=== PATIENT | female | born 1930 | race Two or more races ===

== ENCOUNTER 2020-02-24 12:16 | Inpatient (IN) | payer MEDICAID, SELFPAY ==
[~2020-02-24] VITALS: Ht 152.4 cm; Wt 57.2 kg
[2020-02-24 12:42] LABS: BASOPHILS % (AUTO) 0.4 % (0.0-2.0); HEMATOCRIT 44 % (33-45); HEMOGLOBIN 14.4 g/dL (11.5-14.8); LYMPHOCYTES # (AUTO) 0.9 /CMM (0.8-4.8); LYMPHOCYTES % (AUTO) 7.4 % (20.0-44.0); MEAN CORPUSCULAR HGB CONC 33 g/dl (31.0-36.0); MEAN CORPUSCULAR VOLUME 92 fL (82-100); MONOCYTES # (AUTO) 0.5 /CMM (0.1-1.30); MONOCYTES % (AUTO) 4.3 % (2.0-12.0); NEUTROPHILS # (AUTO) 10.8 /CMM (1.8-8.9); NEUTROPHILS % (AUTO) 87.9 % (43.0-81.0); PLATELET COUNT (AUTO) 253 /CMM (150-450); WHITE BLOOD COUNT (AUTO) 12.2 K/uL (4.3-11.0)
--- NOTE | 2020-02-24 12:45 | NUR ---
AJITH FROM HOME TO ER BED 6. AAOX4. NOT IN RESP DISTRESS. BROUGHT IN FOR FEELING SICK FOR THE PAST FEW DAYS. PT REPORTS TYHAT SHE IS LIVING WITH HER FAMILY WHO ARE COVID POSITIVE. PT STATES THAT SHE HAS JUST BEEN IN BED AND CANT EAT. TEMP 99.9. PT ON ISOLATION AND MASKED PLACED. WAS AT BEDSIDE FOR EVAL. ORDERS RECEIVED NOTED AND CARRIED OUT. IV LINE ONTAINED, BLOOD DRAWN AND GIVE TO SHIP SURVEYOR. PT IN MONITOR.
--- NOTE | 2020-02-24 12:49 | NUR ---
COVID SWAB DONE AND SENT TO LAB
[2020-02-24 12:50] LABS: CALCIUM, SERUM 9.2 mg/dL (8.5-10.1); CARBON DIOXIDE 27 mmol/L (21-32); CHLORIDE 106 mmol/L (98-107); GLUCOSE 145 mg/dL (74-106); POTASSIUM 3.3 mmol/L (3.5-5.1); SODIUM SERUM 144 mmol/L (136-145); UREA NITROGEN, BLOOD 16 mg/dL (7-18)
--- NOTE | 2020-02-24 12:51 | NUR ---
PT UNABLE TO URINATE AT THIS TIME. MADE AWARE. WILL COLLECT URINE WHEN PT IS READY.
[2020-02-24 13:03] LABS: ALANINE AMINOTRANSFERASE 36 U/L (12-78); ALBUMIN 2.9 g/dL (3.4-5.0); ALKALINE PHOSPHATASE 81 U/L (46-116); ASPARTATE AMINOTRANSFERASE 43 U/L (15-37); B-TYPE NATRIURETIC PEPTIDE 245 PG/ML (0-125); BILIRUBIN,TOTAL 0.9 mg/dL (0.2-1.0); TOTAL PROTEIN, SERUM 7.9 g/dL (6.4-8.2)
--- NOTE | 2020-02-24 13:14 | NUR ---
CALLED FOR TELE ISOLATION BED
[2020-02-24 14:18] LABS: C-REACTIVE PROTEIN 6.3 mg/dL (0.0-0.9); CREATINE KINASE, TOTAL 41 U/L (26-192); FERRITIN 192 ng/mL (8-388)
[2020-02-24 14:19] LABS: D-DIMER 2.42 mg/L(FEU (0.17-0.50)
[2020-02-24] MEDS ORDERED: Z GUARD REMEDY 2 OZ OINT TP PRN (15:00)
[2020-02-24] MEDS ORDERED: MAG HYDROX/AL HYDROX/SIMETH 30 ML UDC PO PRN (15:00)
[2020-02-24] MEDS ORDERED: ONDANSETRON HCL/PF 4 MG/2 ML VIAL IVP PRN (15:00)
[2020-02-24] MEDS ORDERED: MAGNESIUM HYDROXIDE 30 ML UDC PO PRN (15:00)
[2020-02-24 15:10] LABS: BILIRUBIN,DIRECT 0.2 mg/dL (0.0-0.2)
--- NOTE | 2020-02-24 15:12 | NUR ---
NURSING SUP GAVE 117-2.
[2020-02-24 15:25] LABS: ABG BASE EXCESS 2.1 mmol/L; ABG OXYGEN SATURATION 93.2 % (92.0-98.5); ABG PCO2 35.5 mmHg (35.0-45.0); ABG PH 7.472 (7.350-7.450); ABG PO2 64.4 mmHg (75.0-100.0); AaDO2 64.5 mmHg; COHb 0.4 % (0.5-1.5); MetHb 0.5 % (0.0-1.5); O2Hb 92.4 % (94.0-97.0); SITE, ABG Right Radial; VENT MODE, BG NC 2L
--- NOTE | 2020-02-24 15:52 | NUR ---
DR. HARRIS AT BEDSIDE
--- NOTE | 2020-02-24 15:54 | NUR ---
REPORT GIVEN TO KYRIE HORVATH FOR PHILOMENA.
[2020-02-24 16:00] VITALS: BP 121/71
[2020-02-24] MEDS ORDERED: AZITHROMYCIN 500 MG in IV D5W 250 ML IV SCH (16:00)
--- NOTE | 2020-02-24 16:10 | NUR ---
PT TRASNPORTED TO UNIT ON [facility] WITH EMT AND RN AT BEDSIDE USING ACLS PROTOCOL. NAD NOTED.
--- NOTE | 2020-02-24 16:30 | NUR ---
SPORTS BROADCASTING INTERNSHIP NOTES PATIENT RECEIVED ALERT AND ORIENTED X3, NO RESPIRATORY DISTRESS, ON O2 AT 2LPM VIA NASAL CANULA. NO C/O PAIN AT THIS TIME. ASSEMBLIES AND INSTALLATIONS INSPECTOR ON SR AT 90S. SKIN WARM TO TOUCH, IV ACCESS SITE ON THE RT WRIST #20G, INTACT AND PATENT. SAFETY PRECAUTIONS IN PLACE. BELONGINGS ACCOUNTED FOR AND SIGNED. PATIENT'S NEEDS ATTENDED, BED ON LOWEST LOCKED POSITION, CALL LIGHT WITHIN REACH. WILL CONTINUE TO MONITOR.
[2020-02-24] MEDS ORDERED: CEFTRIAXONE 1 G VIAL IV SCH (17:00)
[2020-02-24] MEDS: CEFTRIAXONE 1 G in IV D5W 50 ML IV SCH (17:28)
[2020-02-24] MEDS: ENOXAPARIN SODIUM 30 MG/0.3 ML DISP.SYRIN SQ SCH (17:28)
[2020-02-24 20:00] VITALS: BP 116/53
[2020-02-24] MEDS: HYDROXYCHLOROQUINE 200 MG TABLET PO SCH (23:04)
[2020-02-25] VITALS: BP 117/49
[2020-02-25 04:00] VITALS: BP 116/50
[2020-02-25 06:48] LABS: BASOPHILS % (AUTO) 0.2 % (0.0-2.0); HEMATOCRIT 39 % (33-45); HEMOGLOBIN 13.1 g/dL (11.5-14.8); LYMPHOCYTES % (AUTO) 7.9 % (20.0-44.0); MEAN CORPUSCULAR HGB CONC 33 g/dl (31.0-36.0); MEAN CORPUSCULAR VOLUME 91 fL (82-100); MONOCYTES # (AUTO) 0.3 /CMM (0.1-1.30); MONOCYTES % (AUTO) 2.6 % (2.0-12.0); NEUTROPHILS # (AUTO) 11.6 /CMM (1.8-8.9); NEUTROPHILS % (AUTO) 89.3 % (43.0-81.0); PLATELET COUNT (AUTO) 240 /CMM (150-450); RED BLOOD CELL COUNT(AUTO) 4.31 MIL/uL (4.0-5.2)
[2020-02-25 07:06] LABS: CALCIUM, SERUM 8.5 mg/dL (8.5-10.1); CREATININE 0.7 mg/dL (0.6-1.3); MAGNESIUM 2.3 mg/dL (1.8-2.4); PHOSPHORUS 2.4 mg/dL (2.5-4.9); POTASSIUM 3.2 mmol/L (3.5-5.1)
[2020-02-25 07:17] LABS: C-REACTIVE PROTEIN 9.5 mg/dL (0.0-0.9)
--- NOTE | 2020-02-25 07:20 | NUR ---
ms rn received on bed, awake,alert,oriented x3,portuguese speaking,not in any form of distress, respirations even and unlabored, o2 2liters at 92 % saturation,all needs attended.
[2020-02-25 08:00] VITALS: BP 126/78
--- NOTE | 2020-02-25 08:22 | NUR ---
WOUND CARE CONSULT: REVIEWED CHART AND NURSING DOCUMENTATION. CURRENT CHAR SCORE IS 16. RECOMMENDATIONS MADE FOR SKIN PROTECTION AND DISCUSSED WITH NURSING STAFF. MD IN AGREEMENT WITH PLAN OF CARE.
[2020-02-25] MEDS: HYDROXYCHLOROQUINE 200 MG TABLET PO SCH ×2 (08:47→22:10)
--- NOTE | 2020-02-25 09:00 | NUR ---
ms stoll breakfast served, due meds given,tolerated well.
--- NOTE | 2020-02-25 10:05 | NUR ---
ms rn, patient trans fered to 205 per order. no distress noted. report given to sandra.
--- NOTE | 2020-02-25 10:10 | NUR ---
MAIL PROCESSING CLERK NOTES PATIENT TRANSFER FROM [facility], REPORT GIVEN BY SHANTHI MITTAL. PATIENT ALERT ORIENTED X 2. NO ACUTE DISTRESS NOTED. BREATHING UNLABORED. NO SOB NOTED. IV ACCESS PATENT AND INTACT, NO REDNESS, NO SWELLING NOTED ISOLATION AND SAFETY MEASURES IN PLACE. CALL LIGHT WITHIN REACH. WILL CONTINUE TO MONITOR ACCORDINGLY.
[2020-02-25 12:00] VITALS: BP 128/76
[2020-02-25] MEDS ORDERED: K PHOS NEUTRAL 250 MG TABLET PO ONE (13:30)
[2020-02-25] MEDS: IV D5/0.45 NACL 1,000 ML IV PRN (15:40)
[2020-02-25] MEDS: POTASSIUM CHLORIDE 20 MEQ TAB.PRT.SR PO SCH ×2 (15:57→17:06)
[2020-02-25 16:00] VITALS: BP 135/63
[2020-02-25] MEDS: CEFTRIAXONE 1 G in IV D5W 50 ML IV SCH (17:06)
--- NOTE | 2020-02-25 18:00 | NUR ---
MS RN NOTES COVID TEST RESULTED POSITIVE, PUBLICATIONS DESIGNER SOCO SANTAMARIA MADE AWARE, NO NEW ORDERS MADE AT THIS TIME. PATIENT ON ISOLATION FOR COVID. GRANDDAUGHTER MARYBETH MILLER (PERSON TO NOTIFY) MADE AWARE.
--- NOTE | 2020-02-25 18:58 | NUR ---
PIECE MEAT TRIMMER NOTES PATIENT IN BED ALERT ORIENTED X 2. NO ACUTE DISTRESS NOTED. BREATHING UNLABORED. NO SOB NOTED. IV ACCESS PATENT AND INTACT, NO REDNESS, NO SWELLING NOTED.NEEDS ATTENDED AND ANTICIPATED. ISOLATION AND SAFETY MEASURES IN PLACE. CALL LIGHT WITHIN REACH. WILL ENDORSE TO NIGHT NURSE FOR CONTINUITY OF CARE.
--- NOTE | 2020-02-25 19:45 | NUR ---
RN OPENING NOTES RECEIVED REPORT FROM [facility] KYRIE SOLAN[facility]. FOUND Pt RESTING IN BED COMFORTABLY. NO S/S OF ACUTE DISTRESS OR SOB NOTED. PER REPORT Pt IS A/OX2-3, FORGETFUL, WITH DEMENTIA, LUXEMBOURGISH SPEAKING ONLY. ON TELE MONITOR WITH TELE READING SR 90s. IV ACCESS ON RWRIST #20G. SAFETY MEASURES IN PLACE. BED LOW, LOCKED, HOB ELEVATED, SIDE RAILS UP, CALL LIGHT AND BEDSIDE TABLE WITHIN REACH. BED ALARM ON. WILL CONTINUE TO MONITOR Pt's CONDITION AND SAFETY THROUGHOUT THE NIGHT.
[2020-02-25 20:30] VITALS: BP 126/59
--- NOTE | 2020-02-25 22:00 | NUR ---
RN NOTES: PT PULLED OUT IV ACCESS AGAIN, REMOVED ALSO HER TEL BOX, FOUND IT ON THE BED SIDE TABLE. REINSERTED NEW IV ACCESSES ON LEFT ARM USING G 20. Addendum: 02/28/20 at 0026 by RICHARD GONSALES RN DISREGARD ABOVE DOCUMENTATION: INCORRECT DATE
[2020-02-25] MEDS: ENOXAPARIN SODIUM 30 MG/0.3 ML DISP.SYRIN SQ SCH (22:46)
[2020-02-26 00:30] VITALS: BP 114/64
[2020-02-26] MEDS: ACETAMINOPHEN 325 MG TABLET PO PRN ×2 (01:57→20:57)
--- NOTE | 2020-02-26 06:50 | NUR ---
RN CLOSING NOTES NO SIGNIFICANT CHANGES IN Pt's CONDITION. Pt IS RESTING COMFORTABLY IN BED. NO S/S OF ACUTE DISTRESS OR SOB NOTED DURING THE NIGHT. ALL NEEDS MET AND ATTENDED TO. SAFETY MEASURES IN PLACE. BED LOW, LOCKED, HOB ELEVATED SIDE RAILS UP, CALL LIGHT AND BEDSIDE TABLE WITHIN REACH. WILL ENDORSE TO DAYSHIFT RN FOR Pt's PHILOMENA. TELE READING SR 92.
[2020-02-26 07:14] LABS: BASOPHILS % (AUTO) 0.4 % (0.0-2.0); CALCIUM, SERUM 8.2 mg/dL (8.5-10.1); CREATININE 0.8 mg/dL (0.6-1.3); EOSINOPHILS % (AUTO) 0.1 % (0.0-6.0); HEMATOCRIT 37 % (33-45); LYMPHOCYTES % (AUTO) 7.5 % (20.0-44.0); MEAN CORPUSCULAR HGB CONC 32 g/dl (31.0-36.0); MEAN CORPUSCULAR VOLUME 91 fL (82-100); MONOCYTES # (AUTO) 0.4 /CMM (0.1-1.30); MONOCYTES % (AUTO) 3.3 % (2.0-12.0); NEUTROPHILS # (AUTO) 11.7 /CMM (1.8-8.9); NEUTROPHILS % (AUTO) 88.7 % (43.0-81.0); PLATELET COUNT (AUTO) 274 /CMM (150-450); POTASSIUM 3.3 mmol/L (3.5-5.1); RED BLOOD CELL COUNT(AUTO) 4.06 MIL/uL (4.0-5.2); WHITE BLOOD COUNT (AUTO) 13.2 K/uL (4.3-11.0)
[2020-02-26 08:00] VITALS: BP 118/61
--- NOTE | 2020-02-26 08:00 | NUR ---
TABLEAU DEVELOPER OPENING NOTES RECEIVED Pt RESTING IN BED COMFORTABLY. NO S/S OF ACUTE DISTRESS OR SOB NOTED. PER REPORT Pt IS A/OX2-3, FORGETFUL, WITH DEMENTIA, TURKS AND CAIC[place] ISLANDER SPEAKING ONLY. ON TELE MONITOR WITH TELE READING SR 90s. IV ACCESS ON RT WRIST #20G. SAFETY MEASURES IN PLACE. ASSISTED TO THE BEDSIDE COMMODE TO VOID.BED LOW, LOCKED, HOB ELEVATED, SIDE RAILS UP, CALL LIGHT AND BEDSIDE TABLE WITHIN REACH. BED ALARM ON. WILL CONTINUE TO MONITOR Pt's CONDITION AND SAFETY THROUGHOUT THE SHIFT.
--- NOTE | 2020-02-26 08:02 | NUR ---
ON COVID DROPLET/CONTACT PRECAUTIONS.
[2020-02-26] MEDS: HYDROXYCHLOROQUINE 200 MG TABLET PO SCH ×2 (09:10→21:00)
[2020-02-26] MEDS: IV D5/0.45 NACL 1,000 ML IV PRN (09:12)
[2020-02-26] MEDS ORDERED: POTASSIUM CHLORIDE 20 MEQ TAB.PRT.SR PO SCH (11:30)
--- NOTE | 2020-02-26 11:54 | NUR ---
PT'S MARYANNE VELEZ CALLED SAYING THAT HER GRANDMA IS ALLERGIC TO PCN.PT IS ON ROCEPHIN IV AND DENIES ANY ALLERGIC REACTION AND IS WITH STABLE V/S.WILL NOTIFY PHARMACY.
[2020-02-26 12:00] VITALS: BP 112/49
--- NOTE | 2020-02-26 13:00 | NUR ---
NOTIFIED RAN KHALIL OF MED RECON AND PT'S ALLERGY TO PCN. RAN KHALIL STATED TO JUST CONTINUE MONITORING THE PT.
[2020-02-26] MEDS ORDERED: METO25TA20 PO (13:52)
[2020-02-26] MEDS ORDERED: AMLO10TA4 PO (13:52)
[2020-02-26] MEDS ORDERED: NITR0.4T48 SL (13:52)
[2020-02-26] MEDS ORDERED: ATOR40TA PEG (13:52)
[2020-02-26 16:00] VITALS: BP 135/64
[2020-02-26] MEDS: CEFTRIAXONE 1 G in IV D5W 50 ML IV SCH (16:52)
--- NOTE | 2020-02-26 18:00 | NUR ---
PT WAS ON ROCEPHIN IV AND NO ADVERSE/ALLERGIC REACTIONS NOTED.WILL CONTINUE TO MONITOR.
--- NOTE | 2020-02-26 19:32 | NUR ---
PT IS SO CONFUSED AND TRIED TO GET OOB AND PULLED OUT HER IV HL WITH NO BLEEDING NOTED.ENDORSED TO NIGHT NURSE CARE'.
[2020-02-26 20:00] VITALS: BP 123/74
--- NOTE | 2020-02-26 20:00 | NUR ---
RN NOTES RECEIVED PT. AWAKE ON BED, SR ON TELE MONITOR HR-98, A.OX2, CONFUSED, SAMI SPEAKING, NOT IN DISTRESS, NO PAIN NOTED, SIDERAILSUPX2, CONTINUE TO MONITOR
--- NOTE | 2020-02-26 20:30 | NUR ---
RN NOTES NEW IV LINE INSERTED ON THE LEFT FOREARM BY THE ICU CHARGE NURSE
[2020-02-26 20:45] VITALS: BP 123/74
[2020-02-26] MEDS: MUPIROCIN OINT 2% 22 GM TUBE SCH (20:55)
[2020-02-26] MEDS: ENOXAPARIN SODIUM 30 MG/0.3 ML DISP.SYRIN SQ SCH (20:57)
[2020-02-26] MEDS: DOXYCYCLINE HYCLATE (100 MG) 100 MG TABLET PO SCH (20:57)
--- NOTE | 2020-02-26 21:00 | NUR ---
RN NOTES PER PT.'S GRANDDAUGHTER TREE- NOT TO GIVE PLAQUENIL.. "SHE SATED PER THEIR PRIMARY DOCTOR, THERE'S A LOT OF SIDE EFFECT OF THIS MEDICATION CONSIDERING PT'S AGE"
[2020-02-27] VITALS (9 sets, daily range): BP systolic 106–135; BP diastolic 48–98
[2020-02-27] MEDS: IV D5/0.45 NACL 1,000 ML IV PRN (05:13)
--- NOTE | 2020-02-27 06:32 | NUR ---
RN NOTES SLEEPING BUT AROUSABLE, NOT IN DISTRESS, NO APIN NOTED, MORNING CARE RENDERED, SIDERAILSUPX2, , PT. NEEDS ATTENDED
--- NOTE | 2020-02-27 08:00 | NUR ---
MECHANICAL ENGINEERING SPECIALIST OPENING NOTES RECEIVED Pt RESTING IN BED COMFORTABLY. NO S/S OF ACUTE DISTRESS OR SOB NOTED. PER REPORT Pt IS A/OX2-3, FORGETFUL, WITH DEMENTIA, GUINEAN SPEAKING ONLY. ON TELE MONITOR WITH TELE READING SR 84 WITH QTC OF 423. IV ACCESS ON RT WRIST #20G. SAFETY MEASURES IN PLACE. ASSISTED TO THE BEDSIDE COMMODE TO VOID.BED LOW, LOCKED, HOB ELEVATED, SIDE RAILS UP, CALL LIGHT AND BEDSIDE TABLE WITHIN REACH. BED ALARM ON.ON COVID CONTACT/DROPLET PRECAUTIONS. WILL CONTINUE TO MONITOR Pt's CONDITION AND SAFETY THROUGHOUT THE SHIFT.
[2020-02-27 08:03] LABS: BASOPHILS % (AUTO) 0.5 % (0.0-2.0); HEMATOCRIT 37 % (33-45); HEMOGLOBIN 12.3 g/dL (11.5-14.8); LYMPHOCYTES % (AUTO) 11.1 % (20.0-44.0); MEAN CORPUSCULAR HGB CONC 33 g/dl (31.0-36.0); MEAN CORPUSCULAR VOLUME 91 fL (82-100); MONOCYTES # (AUTO) 0.4 /CMM (0.1-1.30); MONOCYTES % (AUTO) 4.5 % (2.0-12.0); NEUTROPHILS # (AUTO) 7.4 /CMM (1.8-8.9); NEUTROPHILS % (AUTO) 82.9 % (43.0-81.0); PLATELET COUNT (AUTO) 314 /CMM (150-450); RED BLOOD CELL COUNT(AUTO) 4.13 MIL/uL (4.0-5.2)
--- NOTE | 2020-02-27 08:30 | NUR ---
INFORMED SIMRAN,SHIPPING RECEIVING MANAGER THAT PT'S FAMILY REFUSED THE ADMINISTRATION OF PLAQUENIL DUE TO PT'S PMD'S ADVICE DUE TO PT'S OLD AGE.
[2020-02-27 08:33] LABS: CALCIUM, SERUM 8.8 mg/dL (8.5-10.1); CREATININE 0.6 mg/dL (0.6-1.3); POTASSIUM 3.7 mmol/L (3.5-5.1)
[2020-02-27] MEDS: DOXYCYCLINE HYCLATE (100 MG) 100 MG TABLET PO SCH ×2 (08:51→21:27)
[2020-02-27] MEDS: HYDROXYCHLOROQUINE 200 MG TABLET PO SCH ×2 (08:51→21:00)
[2020-02-27] MEDS: MUPIROCIN OINT 2% 22 GM TUBE SCH ×2 (10:12→21:28)
--- NOTE | 2020-02-27 11:00 | NUR ---
PLACED PT ON O2 AT 2L/MIN VIA NC WITH O2 SAT OF 92%. PT SLEEPING COMFORTABLY BUT AROUSABLE.
[2020-02-27] MEDS: methylPREDNISolone SOD SUCC 40 MG/ML VIAL IV SCH (12:23)
[2020-02-27] MEDS: CEFTRIAXONE 1 G in IV D5W 50 ML IV SCH (16:47)
--- NOTE | 2020-02-27 18:00 | NUR ---
PT PULLED OUT HER IV HEPLOCK AND TRIED TO GET OOB.PT IS SO CONFUSED AND IS A FALL RISK.ENDORSED TO NIGHT NURSE CARE.
--- NOTE | 2020-02-27 20:10 | NUR ---
BINDING DYER: PT ISOLATION COVID +, PPE UTILIZED, BED ALARM SECURED PT GETTING OUT OF BED WITHOUT CALLING FOR HELP, A/O X2, BED SIDE COMMODE WITHIN REACH. PT PULLED OUT NEWLY INSERTED IV ACCESS. WILL START ANOTHER ONE. PER REPORT FAMILY REFUSING PLAQUENIL TO BE GIVEN TO PT. SAFETY PRECAUTIONS FOR FALL INITIATED, CALL LIGHT IN REACH, WILL CONTINUE MONITORING PT.
--- NOTE | 2020-02-27 21:00 | NUR ---
RN NOTES: REINSERTED NEW IV ACCESS ON LEFT FA G 20. ASSISTED PT TO THE COMMODE TWICE ALREADY. BED ALARM SECURED
[2020-02-27] MEDS: ENOXAPARIN SODIUM 30 MG/0.3 ML DISP.SYRIN SQ SCH (21:27)
--- NOTE | 2020-02-27 21:28 | NUR ---
rn notes: per family do not give plaquenil per pt's primary doctor recommendation due to pt's age, too risky for her health accdg to familly. aware.
--- NOTE | 2020-02-27 22:30 | NUR ---
RN NOTES: PT ABLE TO REMOVE HER IV ACCESS AGAIN AND TELE BOX. REINSERTED A NEW IV ON LEFT WRIST G 24.
--- NOTE | 2020-02-27 23:30 | NUR ---
RN NOTES: PT PULLED OUT IV ACCESS AGAIN, REMOVED ALSO HER TEL BOX, FOUND IT ON THE BED SIDE TABLE. REINSERTED NEW IV ACCESSES ON LEFT FOREARM USING G 20.
[2020-02-28] VITALS: BP 102/55
--- NOTE | 2020-02-28 | NUR ---
RN NOTES: PT VERY COMBATIVE, HITTING, SCRATCHING STAFF, MANAGE TO REMOVE HER IV ACCES AGAIN AND THROW THE TELE BOX, GETTING OUT OF BED.
--- NOTE | 2020-02-28 00:34 | NUR ---
RN NOTES: PT GETTING OUT OF BED EVERY 30MINS WITHOUT CALLING FOR HELP, WHEN OFFERED COMMODE PT DOESNT WANT TO USE IT PTY BEEN OFFERED TO USE COMMODE EVERY 2HRS. VERY UNCOOPERATIVE, AND REMOVED IV ACCESS AGAIN, AND TELE BOX. NOTIFIED AGRICULTURE MECHANIC MD OF PT'S BEHAVIOR, UNABLE TO INFUSED IV FLUID AND INTERRUPTION WITH MEDICAL CARE. PER MD TELEPHONE CONVERSATION, ORDER TO PLACED ON BILATERAL SOFT WRIST RESTRAINT. ORDER READ BACK VERIFIED AND CARRIED OUT.
[2020-02-28 01:08] VITALS: BP 121/59
--- NOTE | 2020-02-28 02:45 | NUR ---
RN NOTES: RECEIVED REPORT FROM LAB: BLOOD CULTURE-PRELIM RESULT: ONE BOTTLE OF SET GRAM POSITIVE COCCI IN CLUSTERS SEEN ON GRAM STAIN. CONTACTED MD MANAGER DISASTER RECOVERY, PER MD TO ENDORSE TO DAY SHIFT RAMONITA KOHLI.
--- NOTE | 2020-02-28 03:45 | NUR ---
rn notes: notified md pt manage to remove herself from restraint, unknown how pt able to do it, but it happened multiple times, pt release herself from soft wrist restraint and able to remove iv and tele box. per md telephone order received, to give ativan 0.5 mg im x 1. order read back verified and carried out.
[2020-02-28] MEDS: IV D5/0.45 NACL 1,000 ML IV PRN ×2 (03:54→20:22)
[2020-02-28 04:00] VITALS: BP 154/85
[2020-02-28] MEDS: LORAZEPAM INJ 2 MG/ML VIAL IM/IV ONE ×2 (04:07→04:54)
--- NOTE | 2020-02-28 04:10 | NUR ---
rn notes: unable to administer im ativan as pt's spo2 drop to 85% on ra, pt managed to removed oxygen tele box, iv access, and restraints. placed pt on simple mask 6l spo2 went back up to 94-95%, vs 154/73 hr 96, rr 17. blood sugar check result is 117. new iv access reinserted on right fa g 20, [id number] back to ivf as ordered.
--- NOTE | 2020-02-28 04:10 | NUR ---
rn notes: 0.5 mg im of ativan administered for agitation, restlessness Addendum: 02/28/20 at 0417 by RICHARD GONSALES RN disregard above documentation. unable to administer ativan at this time, due to low spo2
[2020-02-28 05:35] VITALS: BP 154/73
--- NOTE | 2020-02-28 07:00 | NUR ---
RN NOTES: RECEIVED PATIENT IN BED, RESTLESS DESPITE OF RESTRAINTS AND SITTER AT BEDSIDE, PATIENT CONTINUOS TO REMOVE MASK DESPITE OF EXPLANATIONS, RE-ORIENTATION AND EDUCATION GIVEN. PATIENT CLEAN AND DRY. TURNED TV ON FOR STIMULATION AND DISTRACTION. BED IN LOWEST POSITION, LOCKED. FREQUENT VISUAL CHECK DONE. WILL CONTINUE TO MONITOR.
[2020-02-28 07:39] LABS: BASOPHILS % (AUTO) 0.4 % (0.0-2.0); HEMATOCRIT 38 % (33-45); HEMOGLOBIN 12.9 g/dL (11.5-14.8); LYMPHOCYTES # (AUTO) 0.8 /CMM (0.8-4.8); LYMPHOCYTES % (AUTO) 7.6 % (20.0-44.0); MEAN CORPUSCULAR HGB CONC 34 g/dl (31.0-36.0); MEAN CORPUSCULAR VOLUME 90 fL (82-100); MONOCYTES # (AUTO) 0.5 /CMM (0.1-1.30); NEUTROPHILS # (AUTO) 8.9 /CMM (1.8-8.9); PLATELET COUNT (AUTO) 389 /CMM (150-450); RED BLOOD CELL COUNT(AUTO) 4.27 MIL/uL (4.0-5.2); WHITE BLOOD COUNT (AUTO) 10.2 K/uL (4.3-11.0)
[2020-02-28 07:51] VITALS: BP 115/66
[2020-02-28 07:52] LABS: CALCIUM, SERUM 9.3 mg/dL (8.5-10.1); CARBON DIOXIDE 26 mmol/L (21-32); CHLORIDE 104 mmol/L (98-107); CREATININE 0.8 mg/dL (0.6-1.3); GLUCOSE 142 mg/dL (74-106); POTASSIUM 3.3 mmol/L (3.5-5.1); SODIUM SERUM 140 mmol/L (136-145); UREA NITROGEN, BLOOD 10 mg/dL (7-18)
--- NOTE | 2020-02-28 08:00 | NUR ---
RN NOTES: 0700: UPON CHANGING OF SHIFT PT REMOVED AGAIN HER OXYGEN AND RESTRAINT, WHEN SPO2 WAS CHECK IT WAS DOWN TO 88% TO 90%, DECIDED TO SWITCH TO SIMPLE MASK 6L PT ONLY WENT UP TO 92% THEN DOWN TO 90%. DECIDED TO SWITCH TO NRB 15L FOR THE MEAN TIME IN ORDER TO STABILIZE OXYGENATION. SPO2 WENT UP TO 94-95%. A/O X1-2, RESTLESS, AGITATED, STILL COMBATIVE. SITTER AT BED SIDE. WILL CONTINUE MONITORING PT.
[2020-02-28 08:36] LABS: ABG BASE EXCESS 3.1 mmol/L; ABG OXYGEN SATURATION 96.6 % (92.0-98.5); ABG PCO2 31.9 mmHg (35.0-45.0); ABG PH 7.519 (7.350-7.450); ABG PO2 80.6 mmHg (75.0-100.0); AaDO2 456.3 mmHg; COHb 0.4 % (0.5-1.5); O2Hb 96.2 % (94.0-97.0); SITE, ABG Right Radial; VENT MODE, BG NRB
--- NOTE | 2020-02-28 08:44 | NUR ---
RN NOTES: RECEIVED CALL FROM ISMAEL ABG RESULT IS RESPIRATORY ALKALOSIS, HYPERVENTILATION. MD SOCO SHIPMAN CURRENTLY IN THE UNIT, RELAYED SITUATION , PER SOCO MONITOR PT'S OXYGENATION, RELAYED RESULT OF ABG, CXR STAT, TO INFORM DR HARRIS ABOUT PT'S OXYGENATION/NRB AND ABG RESULT AND SEE WHAT WILL BE THE RECOMMENDATION. PT STILL ON NRB 15L, WILL TRY TO WEAN TO SIMPLE MASK THEN BACK TO NASAL CANNULA WHEN TOLERATED BY PT, OTHERWISE NOTIFY MD IF PT UNABLE TO TOLERATE IT.
[2020-02-28] MEDS: methylPREDNISolone SOD SUCC 40 MG/ML VIAL IV SCH (08:55)
[2020-02-28] MEDS: DOXYCYCLINE HYCLATE (100 MG) 100 MG TABLET PO SCH ×2 (08:55→20:16)
--- NOTE | 2020-02-28 09:10 | NUR ---
RN NOTES: RECEIVED CALL FROM PHARMACY TO ORDER QUANTIFERON GOLD TEST PT WILL BE STARTED ON ACTEMRA. CONTACTED LAB SPOKED WITH CAN, PER CAN THEY CANNOT DRAW THE BLOOD RIGHT NOW, IT IS BEING SENT OUT TO LAB [facility] WILL BE TOMORROW AFTERNOON AT 0400PM. SHE STATED PHARMACY CAN CALL THEM IF THERE'S FURTHER QUESTION. CONTACTED [facility] AGAIN, RELAYED SITUATION STATED THEY WILL LAB/CAN.
--- NOTE | 2020-02-28 09:16 | NUR ---
RN CLOSING NOTES: PT ON 10L SIMPLE MASK SPO2 87%-91%, PT CURRENTLY EATING, SITTER AT BED SIDE. ALREADY SEEN BY DR HARRIS AT 0900AM, MADE MD AWARE OF ABG RESULT, PER MD MONITOR CLOSELY PT'S OXYGENATION, TRY WEANING, IF UNABLE TO TOLERATE OR IF THERE'S ANY CHANGES IN RESPIRATORY STATUS NOTIFIED MD RIGHT AWAY. IV ACCESS REMAINS PATENT AND FLUSHING WELL INFUSING WITH IVF ORDERED. SAFETY PRECAUTIONS FOR FALL INITIATED, CALL LIGHT IN REACH, ENDORSED TO DAY KYRIE DIETRICH FOR CONTINUITY OF CARE.
[2020-02-28] MEDS: MUPIROCIN OINT 2% 22 GM TUBE SCH ×2 (09:18→20:19)
[2020-02-28] MEDS ORDERED: diphenhydrAMINE HCL 50 MG/ML VIAL IV ONE (10:00)
[2020-02-28] MEDS ORDERED: ACETAMINOPHEN 650 MG/20.3 ML UDC PO ONE (10:00)
[2020-02-28] MEDS ORDERED: TOCILIZUMAB 400 MG in IV NS 0.9% 80 ML IV ONE (10:30)
[2020-02-28] MEDS ORDERED: POTASSIUM CHLORIDE 20 MEQ POWDER PACKET PO SCH (11:30)
--- NOTE | 2020-02-28 11:30 | NUR ---
SHAKE PACKER NOTES DR. HARRIS AWARE OF O2 SAT FLUCTUATING FROM 86-88'S ON NC AT 5 L/MIN, SIMPLE MASK APPLIED TO PATIENT CURRENTLY AT 6 L/MIN WITH SPO2 OF 90% PER DR. HARRIS KEEP AT 10 L/MIN AND TITRATE. PATIENT STILL WITH EPISODES OF REMOVING MASK DESPITE OF SITTER AND RESTRAINTS IN PLACE.
[2020-02-28] MEDS: CEFTRIAXONE 1 G in IV D5W 50 ML IV SCH (16:30)
[2020-02-28] MEDS: HYDROCODONE/APAP 5/325MG 1 EACH TABLET PO PRN ×2 (16:45→20:16)
--- NOTE | 2020-02-28 19:03 | NUR ---
ESCROW MANAGER NOTES PATIENT RESTING COMFORTABLY IN BED WITH SITTER AT BEDSIDE WITH RESTRAINTS REMOVED THROUGHOUT THE SHIFT. FAMILY COMMUNICATES WITH PATIENT WITH PHONE PROVIDED IN ROOM. ON 10L/MIN VIA MASK VICKY WELL WITH SPO2 96%. INFORMED MARYBETH REGARDING CONVALESCENT PLASMA AND CONSENTED TO IT. PATIENT STILL CONTINUOS TO REMOVE MASK DESPITE OF EXPLANATIONS, RE-ORIENTATION AND EDUCATION PROVIDED. BED IN LOWEST POSITION, LOCKED. FREQUENT VISUAL CHECK DONE. IN NO APPARENT DISTRESS.
--- NOTE | 2020-02-28 19:10 | NUR ---
RN OPENING NOTES Received patient A/O x2, awake on bed, confused, getting off the bed. On O2 inhalation via simple mask at 10LPM, saturating well, no SOB/respiratory distress noted at this time. Patient noted refusing supplemental O2 and pulling of the lines. No sitter at this time, continue bilateral soft wrist restraints as ordered. On tele monitor with NSR noted, no unusualities noted at this time. Kept on bed clean, dry and comfortable. Call light within easy reach. On fall and aspiration precautions. Will continue to monitor accordingly.
[2020-02-28 20:00] VITALS: BP 164/88
[2020-02-28] MEDS: ENOXAPARIN SODIUM 30 MG/0.3 ML DISP.SYRIN SQ SCH (20:17)
--- NOTE | 2020-02-28 23:39 | NUR ---
RN NOTES Patient noted with severe confusion and agitation. Noted pulling off O2 tubing and IV line. On bilateral soft wrist restraints but pulling off her hands turning red. MD notified, with order Ativan 0.5mg IV X1 and to monitor closely for respiratory status. Noted and carried out. Currently, patient on simple mask 10LPM, saturating 95%. Will continue to monitor accordingly.
[2020-02-29] VITALS: BP 158/59
[2020-02-29] MEDS ORDERED: LORAZEPAM INJ 2 MG/ML VIAL IV PRN
--- NOTE | 2020-02-29 01:58 | NUR ---
RN NOTES Patient still awake, agitated and anxious. Switched to NRB, SpO2 fluctuating 80s to 93. outbound call center representative MD notified, NNO, just to continually monitor the patient closely. O2 sat sensor reapply, REVERBERATORY FURNACE OPERATOR is now doing 1:1 sitter for the patient. Kept pt on high Mae's position. Divert pt's attention to TV show. Will continue to monitor accordingly.
--- NOTE | 2020-02-29 02:05 | NUR ---
RN NOTES Called to pt's granddaughter Carmela [phone]. Gave update of the patient's status and the current POC. Also informed Carmela patient had sitter since midnight. Carmela verbalized concern and still wants to speak the the MOD in AM, she is appreciative of the call. Will endorsed to next shift nurse.
--- NOTE | 2020-02-29 03:16 | NUR ---
RN NOTES Patient noted asleep. On Mae's position. RR 26cpm. Attempted to switch back into simple mask @ 10LPM but SpO2 dropped to <90%. Kept on NRB, SpO2 at 93-95%. yardage caller MD notified with order to kept on NRB at this time. Will continue to monitor accordingly.
[2020-02-29 04:00] VITALS: BP 128/81
[2020-02-29 06:50] LABS: CALCIUM, SERUM 9.2 mg/dL (8.5-10.1); CREATININE 0.6 mg/dL (0.6-1.3); POTASSIUM 3.3 mmol/L (3.5-5.1)
--- NOTE | 2020-02-29 07:10 | NUR ---
RN CLOSING NOTES Patient A/O x1, asleep, on bed, easily awaken. On NRB, saturating 92%. No s/sx of discomfort noted at this time. On tele monitor with NSR noted. With sitter at bedside. All nursing needs attended. Kept on bed clean, dry and comfortable. Call light within easy reach. On fall and aspiration precautions. Endorsed.
--- NOTE | 2020-02-29 07:20 | NUR ---
AGILITY INSTRUCTOR NOTES ON TELE MONITORING ST: 108 IN NO ACUTE DISTRESS.
--- NOTE | 2020-02-29 07:20 | NUR ---
RN NOTES: RECEIVED PATIENT IN BED, ALERT AND AWAKE, ORIENTED X1. ON NRB SPO2 OF 96%. HOB ELEVATED. NOTED PATIENT ANXIOUS. SITTER AT BEDSIDE. PATIENT CLEAN AND DRY. RFA # 20 INTACT AND PATENT INFUSING D5 1/N NS @ 75ML/HR VICKY WLEL. TURNED TV ON FOR STIMULATION AND DISTRACTION. BED IN LOWEST POSITION, LOCKED. BED ALARM ON. CALL LIGHT WITHIN REACH. FREQUENT VISUAL CHECK DONE. WILL CONTINUE TO MONITOR.
[2020-02-29 07:30] LABS: D-DIMER 1.99 mg/L(FEU (0.17-0.50)
[2020-02-29 08:00] VITALS: BP 156/84
[2020-02-29] MEDS: MUPIROCIN OINT 2% 22 GM TUBE SCH ×2 (08:35→21:39)
[2020-02-29] MEDS: methylPREDNISolone SOD SUCC 40 MG/ML VIAL IV SCH (08:35)
[2020-02-29] MEDS: DOXYCYCLINE HYCLATE (100 MG) 100 MG TABLET PO SCH ×2 (08:35→21:39)
[2020-02-29] MEDS: IV D5/0.45 NACL 1,000 ML IV PRN (08:40)
[2020-02-29] MEDS ORDERED: POTASSIUM CHLORIDE 20 MEQ POWDER PACKET GT SCH (09:30)
[2020-02-29] MEDS ORDERED: FEE PK DOSING 1 MIN EA MC ONE (09:50)
[2020-02-29] MEDS ORDERED: VANCOMYCIN 1 GM in IV D5W 250 ML IV SCH (10:00)
[2020-02-29 12:00] VITALS: BP 144/79
[2020-02-29 16:00] VITALS: BP 168/97
[2020-02-29] MEDS: CEFTRIAXONE 1 G in IV D5W 50 ML IV SCH (16:54)
--- NOTE | 2020-02-29 19:05 | NUR ---
CARTOGRAPHY SUPERVISOR NOTES PATIENT IN BED WITH SITTER AT BEDSIDE. PLACED PATIENT ON NRB DUE TO PATIENT JUST REMOVED FACE MASK. SPO2 OF 95%. PATIENT VICKY O2 AT 6L/MIN MOST OF THE TIME DURING THE SHIFT. HOB ELEVATED. PATIENT FORGETFUL AND WITH EPISODE OF GETTING OUT OF BED. SITTER REMAINS AT BEDSIDE AT THIS TIME. RFA # 20 INTACT AND PATENT. DROPLET PRECAUTIONS OBSERVED. BED IN LOWEST POSITION, LOCKED. BED ALARM ON. CALL LIGHT WITHIN REACH. IN NO APPARENT DISTRESS.
--- NOTE | 2020-02-29 19:50 | NUR ---
RN OPENING NOTES RECEIVE REPORT FROM [facility] KYRIE DIETRICH. FOUND Pt AWAKE, RESTING IN BED. NO S/S OF ACUTE DISTRESS OR SEVERE SOB, Pt IS CURRENTLY ON NRB MASK @15L 02. Pt IS A/OX1, FORGETFUL & CONFUSED WITH BASELINE DEMENTIA, GEORGIAN SPEAKING ONLY. ON TELE MONITOR, WITH TELE READING SR/ST 90s-115. IV ACCESS ON RFA #20G @TKO. SAFETY MEASURES IN PLACE. BRUCE SOFT WRIST RESTRAINTS ON FOR SAFETY MEASURES, Pt ATTEMPT TO GET OUT OF BED, WITH UNSTEADY GAIT, ALSO KEEPS TAKING OF O2 MASK, AND Pt DESATS TO 70% ON RA WITHOUT O2 MASK ON. WAITING TO SEE IF SITTER CAN BE PROVIDED FOR TONIGHT. BED LOW, LOCKED, HOB ELEVATED, SIDE RAILS UP, CALL LIGHT AND BEDSIDE TABLE WITHIN REACH. BED ALARM ON. WILL CONTINUE TO MONITOR Pt's CONDITION AND SAFETY THROUGHOUT THE NIGHT.
[2020-02-29 20:30] VITALS: BP 156/91
[2020-02-29] MEDS: ENOXAPARIN SODIUM 30 MG/0.3 ML DISP.SYRIN SQ SCH (21:40)
[2020-03-01] VITALS (7 sets, daily range): BP systolic 138–174; BP diastolic 74–88
--- NOTE | 2020-03-01 05:30 | NUR ---
RN NOTES INFORMED THAT THE CONVALESCENT PLASMA WAS FINALLY DELIVERED. CALLED LAB TO START THAWING THE PLASMA. LAB SAID THEY WILL CALL WHEN PLASMA IS READY FOR YARD RIGGER.
[2020-03-01 06:15] LABS: ABG BASE EXCESS 4.9 mmol/L; ABG OXYGEN SATURATION 95.1 % (92.0-98.5); ABG PCO2 40.3 mmHg (35.0-45.0); ABG PH 7.473 (7.350-7.450); ABG PO2 70.1 mmHg (75.0-100.0); AaDO2 602.6 mmHg; COHb 0.1 % (0.5-1.5); MetHb 0.1 % (0.0-1.5); O2Hb 94.9 % (94.0-97.0); SITE, ABG Right Radial; VENT MODE, BG NRB 100%
--- NOTE | 2020-03-01 06:30 | NUR ---
RN NOTES CALLED LAB TO SEE IF PLASMA IS READY FOR MICROSOFT SYSTEMS ENGINEER, SAID IT IS NOT READY YET, POSSIBLY ANOTHER 20MIN. IF PLASMA IS NOT READY FOR MICROSOFT SYSTEMS ENGINEER, WILL ENDORSE TO DAYSHIFT RN TO INFUSE.
[2020-03-01 07:06] LABS: BASOPHILS # (AUTO) 0.1 /CMM (0.0-0.2); BASOPHILS % (AUTO) 0.6 % (0.0-2.0); EOSINOPHILS % (AUTO) 1.1 % (0.0-6.0); HEMATOCRIT 40 % (33-45); LYMPHOCYTES # (AUTO) 1.4 /CMM (0.8-4.8); LYMPHOCYTES % (AUTO) 10.4 % (20.0-44.0); MEAN CORPUSCULAR HGB CONC 33 g/dl (31.0-36.0); MEAN CORPUSCULAR VOLUME 91 fL (82-100); MONOCYTES # (AUTO) 0.4 /CMM (0.1-1.30); NEUTROPHILS % (AUTO) 84.9 % (43.0-81.0); PLATELET COUNT (AUTO) 483 /CMM (150-450); RED BLOOD CELL COUNT(AUTO) 4.36 MIL/uL (4.0-5.2)
[2020-03-01 07:23] LABS: CALCIUM, SERUM 9.6 mg/dL (8.5-10.1); CREATININE 0.7 mg/dL (0.6-1.3)
--- NOTE | 2020-03-01 07:35 | NUR ---
RN NOTES SPOKE WITH ROSIE RUEDA ON THE PHONE GAVE UPDATE.
--- NOTE | 2020-03-01 07:40 | NUR ---
RN CLOSING NOTES NO SIGNIFICANT CHANGES IN Pt's CONDITION. Pt REMAINED STABLE PER BASELINE. NO S/S OF ACUTE DISTRESS OR SEVERE SOB NOTED DURING THE NIGHT. Pt IS RESTING COMFORTABLY IN BED. BRUCE SOFT WRIST RESTRAINTS ON; RENEWED @0112. SITTER IN PLACE BY DOOR. INFORMED DAYSHIFT RN ABOUT PENDING CONVALESCENT PLASMA, WAITING FOR IT TO BE THAWED IN LAB; LAB WILL CALL WHEN READY FOR OCCUPATIONAL THERAPIST ASSISTANTS. ALL NEEDS MET AND ATTENDED TO. SAFETY MEASURES IN PLACE. BED ALARM ON. ENDORSED TO DAYSHIFT RN FOR Pt's PHILOMENA.
--- NOTE | 2020-03-01 07:40 | NUR ---
DRAW OFF WORKER OPENING NOTES PT A/OX1 NAME ONLY, CONFUSED, AMERICAN SPEAKING, ON 1 ON 1 SITTER DUE TO EPISODES OF PULLING IV AND COMBATIVE BEHAVIOR. RESTRAINTS ON HOLD SINCE PT HAS SITTER. RESPIRATION EVEN AND NON LABORED WITH NO ACUTE RESPIRATORY DISTRESS, TOLERATING NRB MASK AT 15 LPM. SPO2 MONITORED. ABD SOFT AND NON DISTENDED WITH ACTIVE BOWEL SOUNDS, ON DIAPER, INCONTINENT. SKIN WARM TO TOUCH AND DRY. PT HAS NO S/SX OF PAIN AND DISCOMFORT. PT ON ISOLATION DUE TO (+) COVID 19. CUSTOMER SUPPORT ENGINEER SHOWS SR 98. CONVALESCENT PLASMA WAITING WITH LAB. BED IN LOW LOCKED POSITION, HOB ELEVATED, BED ALARM ON. WILL CONTINUE TO MONITOR CARE.
[2020-03-01] MEDS: DOXYCYCLINE HYCLATE (100 MG) 100 MG TABLET PO SCH ×2 (09:00→21:04)
[2020-03-01] MEDS: MUPIROCIN OINT 2% 22 GM TUBE SCH ×2 (09:00→21:13)
[2020-03-01] MEDS: methylPREDNISolone SOD SUCC 40 MG/ML VIAL IV SCH (09:00)
--- NOTE | 2020-03-01 13:50 | NUR ---
TOOL MACHINE SET UP OPERATOR NOTES PT HAS NO C/O AT THIS TIME. PT COOPERATED WELL. SITTER 1:1 OBSERVING PATIENT SAFETY. RESTING WELL. NOT IN ACUTE RESPIRATORY DISTRESS, CONTINUE ON NRB MASK AT 15 LPM.
[2020-03-01] MEDS: CEFTRIAXONE 1 G in IV D5W 50 ML IV SCH (16:35)
--- NOTE | 2020-03-01 19:11 | NUR ---
DRYING FRAME OPERATOR CLOSING NOTES PT A/OX1. NO SOB NOTED, ON O2 AT 15LPM VIA NRB MASK, TOLERATED WELL. NO S/SX OF PAIN. SKIN WARM TO TOUCH AND DRY, NO NEW SKIN BREAKDOWN. IV SITE AT RFA PATENT IN FLUSHING, DRESSING INTACT. ON CONTACT ISOLATION FOR COVID-19. ALL DUE MEDS PROVIDED. ALL CONCERNS/CARE ATTENDED. BED IN LOW LOCKED POSITION, SR X2 FOR SAFETY. ENDORSED PT CARE TO NEXT SHIFT
--- NOTE | 2020-03-01 19:38 | NUR ---
RN OPENING NOTES PATIENT RECEIVED RESTING IN BED A/O X 1, CONFUSED. PATIENT ON NON REBREATHER MASK 15 L, BREATHING EVEN AND UNLABORED. CONTINUOUS 02 MONITORING AT BEDSIDE. IV LOCATED ON RFA #20 TKO. SAFETY PRECAUTIONS IN PLACE WITH BED IN LOWEST POSITION, CALL LIGHT WITHIN REACH, BREAKS ON, SIDE RAILS UP. WILL CONTINUE TO MONITOR THROUGHOUT THE NIGHT.
[2020-03-01] MEDS: ENOXAPARIN SODIUM 30 MG/0.3 ML DISP.SYRIN SQ SCH (21:05)
[2020-03-02] VITALS: BP 127/66
[2020-03-02 04:00] VITALS: BP 155/78
--- NOTE | 2020-03-02 06:56 | NUR ---
RN CLOSING NOTES PATIENT RECEIVED RESTING IN BED A/O X 1, CONFUSED. PATIENT ON NON REBREATHER MASK 15 L, BREATHING EVEN AND UNLABORED. CONTINUOUS 02 MONITORING AT BEDSIDE. IV LOCATED ON RFA #20 TKO. SAFETY PRECAUTIONS IN PLACE WITH BED IN LOWEST POSITION, CALL LIGHT WITHIN REACH, BREAKS ON, SIDE RAILS UP. PATIENT WAS COOPERATIVE THROUGHOUT THE NIGHT, WITH MOMENTS OF STUBORNESS. PATIENT WAS KEPT CLEAN AND DRY THROUGHOUT THE NIGHT. ALL NEEDS ATTENDED TO. WILL ENDORSE TO ONCOMING SHIFT ABOUT PHILOMENA.
[2020-03-02 07:15] LABS: CALCIUM, SERUM 9.4 mg/dL (8.5-10.1); CREATININE 0.8 mg/dL (0.6-1.3); POTASSIUM 3.4 mmol/L (3.5-5.1)
[2020-03-02 07:16] LABS: C-REACTIVE PROTEIN 0.2 mg/dL (0.0-0.9)
[2020-03-02 08:00] VITALS: BP 149/69
--- NOTE | 2020-03-02 08:00 | NUR ---
RN NOTES RECEIVED PATIENT IN THE ROOM ON ISOLATION COVID-19, PATIENT A/OX1/2 CONFUSED,URUGUAYAN SPEAKER. PATIENT ON NON-REBREATHER MASK 15L. PATIENT A/O X1/2 CONFUSED. ASSIST PATIENT TO THE BEDSIDE COMMODE, AND ALSO FEEDER TOLERATED BREAKFAST 20%. V/S STABLE, CALL LIGHT WITHIN TO REACH. SAFETY PRECAUTION MAINTAINED ALL THE TIME.
[2020-03-02 08:04] LABS: BASOPHILS % (AUTO) 0.4 % (0.0-2.0); EOSINOPHILS % (AUTO) 1.9 % (0.0-6.0); HEMATOCRIT 37 % (33-45); HEMOGLOBIN 12.1 g/dL (11.5-14.8); LYMPHOCYTES # (AUTO) 1.3 /CMM (0.8-4.8); LYMPHOCYTES % (AUTO) 10.9 % (20.0-44.0); MEAN CORPUSCULAR HGB CONC 32 g/dl (31.0-36.0); MEAN CORPUSCULAR VOLUME 91 fL (82-100); MONOCYTES # (AUTO) 0.4 /CMM (0.1-1.30); MONOCYTES % (AUTO) 3.6 % (2.0-12.0); NEUTROPHILS # (AUTO) 10.1 /CMM (1.8-8.9); NEUTROPHILS % (AUTO) 83.2 % (43.0-81.0); PLATELET COUNT (AUTO) 440 /CMM (150-450); RED BLOOD CELL COUNT(AUTO) 4.12 MIL/uL (4.0-5.2); WHITE BLOOD COUNT (AUTO) 12.1 K/uL (4.3-11.0)
[2020-03-02 08:56] LABS: D-DIMER 10.68 mg/L(FEU (0.17-0.50)
[2020-03-02] MEDS: MUPIROCIN OINT 2% 22 GM TUBE SCH ×2 (09:00→21:39)
--- NOTE | 2020-03-02 09:00 | NUR ---
RN NOTES GET ORDER TO TRANSFER PATIENT [facility] SAME ROOM WITH .
[2020-03-02] MEDS ORDERED: POTASSIUM CHLORIDE 20 MEQ TAB.PRT.SR PO SCH (11:00)
[2020-03-02] MEDS: DOXYCYCLINE HYCLATE (100 MG) 100 MG TABLET PO SCH ×2 (11:22→21:35)
--- NOTE | 2020-03-02 11:30 | NUR ---
RN NOTES TRANSFERRED PATIENT TO THE [facility] ROOM 115 A. PATIENT STABLE, V/S WNL, NO ACUTE RESPIRATORY DISTRESS, REPORT GIVEN TO THE CHARGE NURSE SOON.
[2020-03-02 11:31] LABS: ABG BASE EXCESS 4.4 mmol/L; ABG OXYGEN SATURATION 98.5 % (92.0-98.5); ABG PCO2 43.3 mmHg (35.0-45.0); ABG PH 7.444 (7.350-7.450); ABG PO2 125.5 mmHg (75.0-100.0); AaDO2 399.4 mmHg; COHb 0.3 % (0.5-1.5); MetHb 0.1 % (0.0-1.5); O2Hb 98.1 % (94.0-97.0); SITE, ABG Left Radial; VENT MODE, BG NRB
[2020-03-02 12:00] VITALS: BP 151/83
--- NOTE | 2020-03-02 13:05 | NUR ---
WARP HAULER NOTE Patient received here in [facility] room 115-1 in stable condition. Tele box set up and commode in the room. Has rfa #20 flushed well. Liberian speaking. No co pain or discomfort. Safety measures reinforced. Call light within reach. Bed locked and on lowest position. Will continue to monitor.
[2020-03-02 16:00] VITALS: BP 149/79
[2020-03-02] MEDS: CEFTRIAXONE 1 G in IV D5W 50 ML IV SCH (17:17)
--- NOTE | 2020-03-02 19:00 | NUR ---
TECHNICAL BUYER CLOSING NOTE Patient in bed asleep appears calm and relaxed. On non-rebreather mask 5L tolerating well. No signs of distress. Patient is american speaking. Has R forearm #20 flushed well. Commode at bedside standby assist. Covid positive. Observed PPE strictly. All due meds given. All needs met. Kept clean and comfortable. Vital signs within normal limits. Safety measures reinforced. Call light within reach. Bed locked and on lowest position. Will endorse to overnight cashier nurse for marnie.
--- NOTE | 2020-03-02 19:10 | NUR ---
LIABILITY CLAIMS REPRESENTATIVE NOTES RECEIVED PT IN BED AND AWAKE. PT A/OX 1-2 WALLIS[place] SPEAKING. RESPIRATIONS EVEN AND UNLABORED WITH NO S/S OF ACUTE DISTRESS OR SOB NOTED. RECEIVED PT ON 10L O2 VIA NON-REBREATHER MASK, TOLERATING WELL. PT WITH RFA #20 PATENT AND INTACT. NO COMPLAINTS OF PAIN AT THIS TIME. SAFETY MEASURES IN PLACE WITH BED IN LOWEST LOCKED POSITION WITH SIDE RAILS UP X2. CALL LIGHT WITHIN REACH. WILL CONTINUE TO MONITOR.
[2020-03-02 20:00] VITALS: BP 130/75
[2020-03-02] MEDS: ENOXAPARIN SODIUM 30 MG/0.3 ML DISP.SYRIN SQ SCH (21:36)
[2020-03-03] VITALS: BP 121/65
[2020-03-03 04:00] VITALS: BP 132/72
[2020-03-03 07:03] LABS: BASOPHILS % (AUTO) 0.3 % (0.0-2.0); EOSINOPHILS % (AUTO) 2.8 % (0.0-6.0); HEMATOCRIT 36 % (33-45); HEMOGLOBIN 11.9 g/dL (11.5-14.8); LYMPHOCYTES # (AUTO) 1.3 /CMM (0.8-4.8); LYMPHOCYTES % (AUTO) 18.1 % (20.0-44.0); MEAN CORPUSCULAR HGB CONC 33 g/dl (31.0-36.0); MEAN CORPUSCULAR VOLUME 91 fL (82-100); MONOCYTES # (AUTO) 0.3 /CMM (0.1-1.30); MONOCYTES % (AUTO) 3.8 % (2.0-12.0); NEUTROPHILS # (AUTO) 5.3 /CMM (1.8-8.9); PLATELET COUNT (AUTO) 418 /CMM (150-450); RED BLOOD CELL COUNT(AUTO) 3.93 MIL/uL (4.0-5.2); WHITE BLOOD COUNT (AUTO) 7.1 K/uL (4.3-11.0)
[2020-03-03 07:15] LABS: CREATININE 0.8 mg/dL (0.6-1.3); POTASSIUM 3.4 mmol/L (3.5-5.1)
--- NOTE | 2020-03-03 07:43 | NUR ---
VIDEOGRAPHER NOTES PT IN BED AND AWAKE. PT A/OX 1-2 HUNGARIAN SPEAKING. RESPIRATIONS EVEN AND UNLABORED WITH NO S/S OF ACUTE DISTRESS OR SOB NOTED THROUGHOUT SHIFT. RECEIVED PT ON 10L O2 VIA NON-REBREATHER MASK, TOLERATING WELL. PT WITH RFA #20 PATENT AND INTACT. PT KEPT CLEAN, DRY, AND COMFORTABLE. NO COMPLAINTS OF PAIN AT THIS TIME. SAFETY MEASURES IN PLACE WITH BED IN LOWEST LOCKED POSITION WITH SIDE RAILS UP X2. CALL LIGHT WITHIN REACH. WILL ENDORSE TO ONCOMING NURSE FOR PHILOMENA.
[2020-03-03 07:47] LABS: C-REACTIVE PROTEIN 0.4 mg/dL (0.0-0.9)
[2020-03-03 08:00] VITALS: BP 132/81
--- NOTE | 2020-03-03 08:00 | NUR ---
DIGITAL PROOFING AND PLATEMAKER OPENING NOTES Received Patient resting in bed. A/O x 1-2 with episodes of confusion, Tajik speaking. VS stable with no acute distress. Breathing even and unlabored on 10LPM via non-rebreather mask with no acute respiratory distress. Denies pain. Telemonitor in place and patent reading SR with HR-76. Bilateral soft wrist restraints in place with skin warm, intact and cap refill <3sec. 20g PIV on RFA clean, intact, patent and flushing well. Safety precautions in place. Bed locked and set to lowest position with side rails x 4 up. All needs rendered at this time. Call light within reach. Will continue to monitor.
[2020-03-03] MEDS: DOXYCYCLINE HYCLATE (100 MG) 100 MG TABLET PO SCH ×2 (08:50→21:10)
[2020-03-03] MEDS: MUPIROCIN OINT 2% 22 GM TUBE SCH ×2 (08:50→21:10)
[2020-03-03] MEDS: ACETAMINOPHEN 325 MG TABLET PO PRN (09:10)
[2020-03-03] MEDS ORDERED: POTASSIUM CHLORIDE 20 MEQ TAB.PRT.SR PO SCH (10:00)
[2020-03-03 11:08] LABS: ABG BASE EXCESS 3.7 mmol/L; ABG OXYGEN SATURATION 93.2 % (92.0-98.5); ABG PCO2 38.7 mmHg (35.0-45.0); ABG PO2 70.8 mmHg (75.0-100.0); COHb 0.3 % (0.5-1.5); MetHb 0.5 % (0.0-1.5); O2Hb 92.5 % (94.0-97.0); SITE, ABG Right Radial
[2020-03-03 12:00] VITALS: BP 128/84
--- NOTE | 2020-03-03 14:00 | NUR ---
patient released off bilateral wrist restrain.
[2020-03-03 16:00] VITALS: BP 147/73
--- NOTE | 2020-03-03 16:00 | NUR ---
placed back on restraint unable to follow commands and high risk for fall.md aware.
--- NOTE | 2020-03-03 18:40 | NUR ---
confused and getting out of bed ,sitter as ordered.
--- NOTE | 2020-03-03 18:50 | NUR ---
CROSS ENTERPRISE INTEGRATOR CLOSING NOTES Patient resting in bed. A/O x 1-2 with episodes of confusion, Arabic speaking. VS stable with no acute distress. Breathing even and unlabored on 6LPM via NC with no acute respiratory distress. Denies pain. Telemonitor in place and patent reading SR with HR-96. Bilateral soft wrist restraints in place with skin warm, intact and cap refill <3sec. 20g PIV on RFA clean, intact, patent and flushing well. Safety precautions in place. Bed locked and set to lowest position with side rails x 4 up. All needs rendered at this time. Call light within reach. Will endorse plan of care to oncoming shift.
--- NOTE | 2020-03-03 19:20 | NUR ---
television picture tube rebuilder OPENING NOTES PATIENT RECEIVED RESTING IN BED A/O X 1, CONFUSED. BREATHING EVEN AND UNLABORED. CONTINUOUS 02 6L VIA NC SPO2 94%MONITORING AT BEDSIDE.ON TELE MONITOR SINUS RHYTHM 90'S IV LOCATED ON RFA #20 TKO. SAFETY PRECAUTIONS IN PLACE WITH BED IN LOWEST POSITION AND LOCKED CALL LIGHT WITHIN REACH, SIDE RAILS UP.ON DROPLET ISOLATION FOR COVID 19 SITTER ON BED SIDE WILL CONTINUE TO MONITOR THROUGHOUT THE NIGHT.
[2020-03-03 20:00] VITALS: BP 158/86
[2020-03-03] MEDS ORDERED: hydrALAZINE HCL IV 20 MG VIAL IV PRN (21:00)
[2020-03-03] MEDS: ENOXAPARIN SODIUM 30 MG/0.3 ML DISP.SYRIN SQ SCH (21:11)
[2020-03-04] VITALS: BP 157/77
[2020-03-04 04:00] VITALS: BP 155/81
--- NOTE | 2020-03-04 06:54 | NUR ---
RN CLOSING NOTES PT ON BED ASLEEP AWAKE EASILY, NO SIGN AND SYMPTOMS OF RESPIRATORY DISTRESS SPO2 > 90% VIA NC 6L O2, ON TELE MONITOR WITH READING SINUS RHYTHM 90'S NO SIGNIFICANT CHANGES ON CONDITION NOTED, DROPLET ISOLATION MAINTAINED FOR COVID 19 (+) SITTER NEAR THE DOOR STILL ON BILATERAL WRIST RESTRAINTS ALL NEEDS ATTENDED SAFETY MEASURE MAINTAINED BED ON LOWEST POSITION AND LOCKED SIDE RAILS UP X2 CALL LIGHT WITHIN REACH WILL ENDORSED TO AM SHIFT NURSE
[2020-03-04 06:58] LABS: CALCIUM, SERUM 9.1 mg/dL (8.5-10.1); CREATININE 0.8 mg/dL (0.6-1.3); POTASSIUM 3.4 mmol/L (3.5-5.1)
[2020-03-04 08:00] VITALS: BP 137/66
[2020-03-04] MEDS: DOXYCYCLINE HYCLATE (100 MG) 100 MG TABLET PO SCH ×2 (08:07→21:30)
[2020-03-04] MEDS: MUPIROCIN OINT 2% 22 GM TUBE SCH ×2 (08:26→21:31)
--- NOTE | 2020-03-04 08:40 | NUR ---
RN OPENING NOTES RECEIVED PT. IN BED. NO ACUTE DISTRESS NOTED. A&OX1, WITH CONFUSION. PT. ON 6L O2 VIA NC, SATURATING WELL AT 93%. PT. ON TELE MONITOR, SR NOTED. PT. RFA #20 INTACT, PATENT, FLUSHED WELL. PT. HAS SOFT BILATERAL WRIST RESTRAINTS, SEMI-EUBANKS'S POSITION. PT. SAFETY MAINTAINED. SITTER IN PLACE. CALL LIGHT WITHIN REACH. WILL CONTINUE TO MONITOR.
[2020-03-04] MEDS ORDERED: POTASSIUM CHLORIDE 20 MEQ TAB.PRT.SR PO ONE (11:00)
[2020-03-04 12:00] VITALS: BP 149/85
[2020-03-04 16:00] VITALS: BP_SYST 156; BP_DIAS 80; BP_DIAS 84
--- NOTE | 2020-03-04 18:35 | NUR ---
RN CLOSING NOTES PT. IN BED. NO ACUTE DISTRESS NOTED. A&OX1, WITH CONFUSION. PT. ON 6L O2 VIA NC, SATURATING WELL AT 93%. PT. ON TELE MONITOR, SR NOTED. PT. RFA #20 INTACT, PATENT, FLUSHED WELL. PT. HAS SOFT BILATERAL WRIST RESTRAINTS, SEMI-EUBANKS'S POSITION. PT. SAFETY MAINTAINED. SITTER IN PLACE. CALL LIGHT WITHIN REACH. WILL ENDORSE PLAN OF CARE TO ONCOMING NURSE
[2020-03-04 20:00] VITALS: BP 115/58
[2020-03-04] MEDS: ENOXAPARIN SODIUM 30 MG/0.3 ML DISP.SYRIN SQ SCH (21:31)
[2020-03-05] VITALS: BP 135/80
[2020-03-05 04:00] VITALS: BP 138/79
[2020-03-05 06:21] LABS: CALCIUM, SERUM 9.1 mg/dL (8.5-10.1); CREATININE 0.7 mg/dL (0.6-1.3); POTASSIUM 3.7 mmol/L (3.5-5.1)
[2020-03-05 08:00] VITALS: BP 146/90
--- NOTE | 2020-03-05 09:30 | NUR ---
RN NOTES DUE MEDS GIVEN
[2020-03-05] MEDS: MUPIROCIN OINT 2% 22 GM TUBE SCH ×2 (10:09→20:54)
[2020-03-05] MEDS: ENSURE ENLIVE 237 ML LIQUID (VANILLA) PO SCH ×3 (10:09→17:00)
[2020-03-05 12:00] VITALS: BP 153/86
--- NOTE | 2020-03-05 12:00 | NUR ---
RN NOTES REPORT GIVEN TO JASMIN FOR PHILOMENA
[2020-03-05] MEDS ORDERED: INVESTIGATIONAL MED MISC 1 EA in IV NS 0.9% 250 ML IV ONE ×3 (12:30→16:00)
--- NOTE | 2020-03-05 12:30 | NUR ---
RN note: Received patient from KYRIE Farooq for PHILOMENA.
[2020-03-05 13:02] LABS: ALBUMIN 2.6 g/dL (3.4-5.0); BILIRUBIN,DIRECT 0.1 mg/dL (0.0-0.2); BILIRUBIN,TOTAL 0.6 mg/dL (0.2-1.0); TOTAL PROTEIN, SERUM 6.3 g/dL (6.4-8.2)
[2020-03-05 13:54] LABS: ABG BASE EXCESS 8.2 mmol/L; ABG OXYGEN SATURATION 94.8 % (92.0-98.5); ABG PCO2 42.6 mmHg (35.0-45.0); ABG PH 7.498 (7.350-7.450); ABG PO2 70.5 mmHg (75.0-100.0); AaDO2 136.8 mmHg; COHb 0.1 % (0.5-1.5); MetHb 0.4 % (0.0-1.5); O2Hb 94.3 % (94.0-97.0); SITE, ABG Left Radial
[2020-03-05 16:00] VITALS: BP 143/72
--- NOTE | 2020-03-05 19:10 | NUR ---
RN OPENING NOTES Received patient awake on bed, with confusion noted. With bilateral soft wrist restraints, patient noted pulling of lines necessary for medical interventions. On tele monitor with NSR noted. On O2 via NC @ 6LPM, saturating well, no respiratory distress noted at this time. Patient noted refused any oral intake. Kept on bed clean, dry and comfortable. On fall and aspiration precautions. Will continue to monitor accordingly.
--- NOTE | 2020-03-05 19:49 | NUR ---
RN CLOSING NOTE: Patient in bed. Awake. alert and oriented x1 with more confusion noted. Patient on bilateral soft wrist restraints for behavior identified. On cont. 02 via nc @ 6lpm with saturation >92% noted. No SOB and not in respiratory distress. No pain reported by patient. Loading dose of remdesivir given on shift with no adverse reactions noted. Call light in reach. Bed locked, low and at semi-jung's position. Side rails up x3. Safety ensured and observed. Due medications given. Endorsed to oncoming shift for PHILOMENA.
[2020-03-05 20:00] VITALS: BP 153/78
[2020-03-05] MEDS: ENOXAPARIN SODIUM 30 MG/0.3 ML DISP.SYRIN SQ SCH (20:52)
[2020-03-06] VITALS: BP 138/84
--- NOTE | 2020-03-06 00:30 | NUR ---
RN NOTES Patient noted SpO2 below 90% on NC @ 6LPM. Changes into simple mask @ 10LPM, SpO2>90%. No other unusualities noted at this time. Notified trade union secretary Md, new order to keep SpO2 >92%. Will continue to monitor accordingly.
--- NOTE | 2020-03-06 03:16 | NUR ---
RN NOTES Patient appeared comfortably asleep, saturating 96-100% on mask. Changed into NC, titrated to kept SpO2 >92%. Kept HOB elevated. Changed pulse ox site PRN. On 2LPM, saturating 94%. Will continue to monitor closely.
[2020-03-06 04:00] VITALS: BP 133/59
--- NOTE | 2020-03-06 06:10 | NUR ---
RN CLOSING NOTES Patient asleep, easily awaken. On supplemental O2 to keep SpO2 >92%. On 2LPM via NC at this time, no SOB/respiratory distress noted. On tele monitor with NSR noted. On bilateral soft wrist restraints, patient still noted confused and pulling of lines. Afebrile the whole shift, no new unusalities noted. Turned and repositioned accordingly. Kept on bed clean, dry and comfortable. On fall and aspiration precautions. Endorsed.
--- NOTE | 2020-03-06 07:10 | NUR ---
PERSONNEL MANAGER NOTES RECEIVED PATIENT IN BED ASLEEP, AROUSABLE TO VERBAL AND TACTILE STIMULI. ALERT AND ORIENTED X1. . HOB ELEVATED. NO SOB. ON O2 AT 2L/MIN VIA NC WITH SPO2 OF 96%. DENIES ANY C/O PAIN NOR DISCOMFORT. ON TELE MONITORING: SR-77. RT FA # 20 INTACT AND PATENT. BED IN LOWEST POSITION, LOCKED. BED ALARM ON. BED SIDERAILS UPX2. CALL LIGHT WITHIN REACH. FREQUENT VISUAL CHECK DONE.
[2020-03-06 07:26] LABS: BASOPHILS # (AUTO) 0.1 /CMM (0.0-0.2); BASOPHILS % (AUTO) 0.8 % (0.0-2.0); EOSINOPHILS % (AUTO) 1.9 % (0.0-6.0); HEMATOCRIT 40 % (33-45); HEMOGLOBIN 13.1 g/dL (11.5-14.8); LYMPHOCYTES # (AUTO) 1.4 /CMM (0.8-4.8); LYMPHOCYTES % (AUTO) 19.1 % (20.0-44.0); MEAN CORPUSCULAR HGB CONC 33 g/dl (31.0-36.0); MEAN CORPUSCULAR VOLUME 92 fL (82-100); MONOCYTES # (AUTO) 0.5 /CMM (0.1-1.30); MONOCYTES % (AUTO) 6.7 % (2.0-12.0); NEUTROPHILS # (AUTO) 5.2 /CMM (1.8-8.9); NEUTROPHILS % (AUTO) 71.5 % (43.0-81.0); PLATELET COUNT (AUTO) 412 /CMM (150-450); RED BLOOD CELL COUNT(AUTO) 4.36 MIL/uL (4.0-5.2); WHITE BLOOD COUNT (AUTO) 7.3 K/uL (4.3-11.0)
[2020-03-06 07:44] LABS: ALBUMIN 2.6 g/dL (3.4-5.0); BILIRUBIN,DIRECT 0.1 mg/dL (0.0-0.2); BILIRUBIN,TOTAL 0.4 mg/dL (0.2-1.0); CREATININE 0.7 mg/dL (0.6-1.3); POTASSIUM 3.7 mmol/L (3.5-5.1); TOTAL PROTEIN, SERUM 6.3 g/dL (6.4-8.2)
[2020-03-06 08:00] VITALS: BP 138/76
[2020-03-06] MEDS: ENSURE ENLIVE 237 ML LIQUID (VANILLA) PO SCH ×3 (09:45→16:17)
[2020-03-06] MEDS: MUPIROCIN OINT 2% 22 GM TUBE SCH ×2 (09:45→20:37)
[2020-03-06] MEDS ORDERED: INVESTIGATIONAL MED MISC 1 EA in IV NS 0.9% 250 ML IV SCH (15:00)
[2020-03-06] MEDS: INVESTIGATIONAL MED MISC 1 EA in IV NS 0.9% 250 ML IV SCH (16:18)
--- NOTE | 2020-03-06 18:27 | NUR ---
COUNSELING AIDE NOTES PATIENT RESTING COMFORTABLY IN BED. ALERT AND ORIENTED X1. . HOB ELEVATED. NO S/S OF RESPIRATORY DISTRESS. ON O2 AT 1.5L/MIN VIA NC WITH SPO2 OF 97%. DENIES ANY C/O PAIN NOR DISCOMFORT. LEFT WRIST SL# 20 INTACT AND PATENT. ON REMDESIVIR WITHOUT S/S OF COMPLICATIONS OBSERVED. NOTED RELEASED OF BILATERAL WRIST RESTRAINTS DURING THE SGIFT WITHOUT EPISODES OF PULLING TUBES, GETTING OUT OF BED NOR ANY BEHAVIOR NOTED. BED IN LOWEST POSITION, LOCKED. BED ALARM ON. BED SIDERAILS UPX2. CALL LIGHT WITHIN REACH. FREQUENT VISUAL CHECK DONE. IN NO APPARENT DISTRESS.
[2020-03-06 19:30] VITALS: BP 151/87
--- NOTE | 2020-03-06 19:56 | NUR ---
ENGINEER SYSTEMS NOTES PATIENT IN BED, AWAKE, ALERT AND ORIENTED X 1, CONFUSED AND MALDIVIAN SPEAKING ONLY. BREATHING EVEN AND UNLABORED ON 2L NC. SHOWS NO SIGNS OF ACUTE RESPIRATORY DISTRESS. NO ACUTE PAIN. TELE MONITOR SR. IV ON L WRIST 20G. ITS CLEAN DRY AND INTACT. SHOWS NO SIGNS OF INFILTRATION NO REDNESS. SAFETY PRECAUTIONS IN PLACE. BED IN LOWEST POSITION, LOCKED, AND CALL LIGHT KEPT WITHIN REACH. WILL CONTINUE TO MONITOR.
[2020-03-06] MEDS: ENOXAPARIN SODIUM 30 MG/0.3 ML DISP.SYRIN SQ SCH (20:37)
[2020-03-07] VITALS: BP 130/72
[2020-03-07 04:33] VITALS: BP 142/64
[2020-03-07 06:34] LABS: BASOPHILS # (AUTO) 0.1 /CMM (0.0-0.2); EOSINOPHILS % (AUTO) 2.1 % (0.0-6.0); HEMATOCRIT 41 % (33-45); HEMOGLOBIN 13.6 g/dL (11.5-14.8); LYMPHOCYTES # (AUTO) 1.6 /CMM (0.8-4.8); LYMPHOCYTES % (AUTO) 20.7 % (20.0-44.0); MEAN CORPUSCULAR HGB CONC 33 g/dl (31.0-36.0); MEAN CORPUSCULAR VOLUME 93 fL (82-100); MONOCYTES # (AUTO) 0.6 /CMM (0.1-1.30); MONOCYTES % (AUTO) 7.5 % (2.0-12.0); NEUTROPHILS # (AUTO) 5.3 /CMM (1.8-8.9); NEUTROPHILS % (AUTO) 68.7 % (43.0-81.0); PLATELET COUNT (AUTO) 365 /CMM (150-450); RED BLOOD CELL COUNT(AUTO) 4.47 MIL/uL (4.0-5.2); WHITE BLOOD COUNT (AUTO) 7.8 K/uL (4.3-11.0)
--- NOTE | 2020-03-07 06:39 | NUR ---
FINANCIAL FOUNDATIONS ASSOCIATE NOTES PATIENT IN BED, ASLEEP, ALERT AND ORIENTED X 1, CONFUSED AND TAJIK SPEAKING ONLY. BREATHING EVEN AND UNLABORED ON 2L NC. SHOWS NO SIGNS OF ACUTE RESPIRATORY DISTRESS. NO ACUTE PAIN. TELE MONITOR SR. IV ON L WRIST 20G. ITS CLEAN DRY AND INTACT. SHOWS NO SIGNS OF INFILTRATION NO REDNESS. ALL DUE MEDICATIONS GIVEN. SAFETY PRECAUTIONS IN PLACE. BED IN LOWEST POSITION, LOCKED, AND CALL LIGHT KEPT WITHIN REACH. WILL ENDORSE TO ONCOMING NURSE.
[2020-03-07 06:40] LABS: CALCIUM, SERUM 9.1 mg/dL (8.5-10.1); CREATININE 0.7 mg/dL (0.6-1.3); POTASSIUM 3.9 mmol/L (3.5-5.1)
[2020-03-07 06:52] LABS: ALBUMIN 2.6 g/dL (3.4-5.0); BILIRUBIN,DIRECT 0.1 mg/dL (0.0-0.2); BILIRUBIN,TOTAL 0.6 mg/dL (0.2-1.0); TOTAL PROTEIN, SERUM 6.2 g/dL (6.4-8.2)
[2020-03-07 08:00] VITALS: BP 130/68
--- NOTE | 2020-03-07 08:00 | NUR ---
INFORMATION SECURITY MANAGER OPENING NOTES RECEIVED PATIENT IN BED, AWAKE, ALERT AND ORIENTED X 1, CONFUSED AND LUXEMBOURGISH SPEAKING ONLY. BREATHING EVEN AND UNLABORED ON 2L NC. NO CARDIAC OR RESPIRATORY DISTRESS NOTED. NO SOB NOTED. SATURATING WELL ON 2L OF O2 VIA NC. ON CARDIAC TELE MONITOR SHOWING SR WITH HR OF 80S. IV ACCESS NOTED ON ON L WRIST 20G. INTACT AND PATENT. AND FLUSHING WELL. NO S/S OF INFECTION OR INFILTRATION NOTED. BILATERAL SOFT WRIST RESTRAINTS NOTED. NO S/S OF SKIN BREAKDOWN UNDER RESTRAINTS. ENSURED THAT RESTRAINTS ARE 2 FINGER WIDTH. SAFETY PRECAUTIONS IN PLACE. BED IN LOWEST POSITION, LOCKED, AND CALL LIGHT KEPT WITHIN REACH. WILL CONT TO MONITOR.
[2020-03-07] MEDS: MUPIROCIN OINT 2% 22 GM TUBE SCH ×2 (08:22→21:54)
[2020-03-07] MEDS: ENSURE ENLIVE 237 ML LIQUID (VANILLA) PO SCH ×3 (08:22→16:39)
[2020-03-07] MEDS: INVESTIGATIONAL MED MISC 1 EA in IV NS 0.9% 250 ML IV SCH (16:38)
--- NOTE | 2020-03-07 18:32 | NUR ---
SPINNING LATHE OPERATOR HYDRAULIC CLOSING NOTES PATIENT IN BED, AWAKE, ALERT AND ORIENTED X 1, NO CARDIAC OR RESPIRATORY DISTRESS NOTED. NO SOB NOTED. BREATHING EVEN AND UNLABORED ON 2L NC. IV ACCESS NOTED ON L WRIST G20. IV ACCESS INTACT AND PATENT. SHOWS NO SIGNS OF INFILTRATION OR INFECTION NOTED. SAFETY PRECAUTIONS IN PLACE. BED IN LOWEST POSITION, LOCKED, AND CALL LIGHT KEPT WITHIN REACH. WILL ENDORSE TO NEXT SHIFT.
[2020-03-07 20:00] VITALS: BP 157/94
[2020-03-07] MEDS: ENOXAPARIN SODIUM 30 MG/0.3 ML DISP.SYRIN SQ SCH (21:54)
[2020-03-08 02:37] VITALS: BP 158/88
[2020-03-08 04:00] VITALS: BP 157/78
[2020-03-08 06:50] LABS: CALCIUM, SERUM 8.8 mg/dL (8.5-10.1); CREATININE 0.7 mg/dL (0.6-1.3)
--- NOTE | 2020-03-08 07:35 | NUR ---
END TRIMMER NOTES PATIENT IN BED NO SOB OR DISCOMFORT NOTED AT THIS TIME. ALL NEEDS ATTENDED. REPORT GIVEN TO CABLE DISPATCHER NURSE.
[2020-03-08 08:00] VITALS: BP 132/75
--- NOTE | 2020-03-08 08:00 | NUR ---
RN NOTES RECEIVED PATIENT IN THE BED A/O X2 ROOM -98 % NO ACUTE RESPIRATORY DISTRESS, TONGAN SPEAKER. PATIENT ISOLATION, FEEDER TOLERATED 75% BREAKFAST, RESTRAIN BECAUSE OF REMOVING IV ACCESS, PATIENT USING BEDSIDE COMMODE WITH ASSIST, ASSIST TURN AND REPOSTION Q2 HR, CHECKED CIRCULATION BILATERAL ARMS Q 2HR. ADMINISTERED SCHEDULED MEDICATION, CALL LIGHT WITHIN TO REACH. CONTINUED MONITORING.
[2020-03-08] MEDS: MUPIROCIN OINT 2% 22 GM TUBE SCH ×2 (08:51→21:51)
[2020-03-08] MEDS: ENSURE ENLIVE 237 ML LIQUID (VANILLA) PO SCH ×3 (08:51→18:17)
[2020-03-08 09:03] LABS: ALBUMIN 2.7 g/dL (3.4-5.0); BILIRUBIN,DIRECT 0.1 mg/dL (0.0-0.2); BILIRUBIN,TOTAL 0.6 mg/dL (0.2-1.0); TOTAL PROTEIN, SERUM 6.2 g/dL (6.4-8.2)
[2020-03-08 12:00] VITALS: BP 125/68
--- NOTE | 2020-03-08 12:00 | NUR ---
RN NOTES PATIENT STABLE V/S WNL ROOM AIR, REFUSED PAIN, CHECKED RESTRAIN FOR CIRCULATION Q2 HR, CONTINUED MONITORING.
[2020-03-08 16:00] VITALS: BP 139/70
--- NOTE | 2020-03-08 18:00 | NUR ---
RN NOTES PATIENT IN THE BED ROOM AIR, V/S WNL, PATIENT TURN AND REPOSTION SELF IN THE BED, INFUSING INVESTIGATION MEDICATION 250 ML/HR ON LEFT AC AREA INTACT. PATIENTS NEEDS ATTENDED AND ANTICIPATED, CALL LIGHT WITHIN TO REACH, CHECKED HANDS SOFT RESTRAIN Q 2 HR, CALL LIGHT WITHIN TO REACH, ENDORSED ONCOMING NURSE FOLLOW PLAN OF CARE.
[2020-03-08] MEDS: INVESTIGATIONAL MED MISC 1 EA in IV NS 0.9% 250 ML IV SCH (18:17)
[2020-03-08 20:00] VITALS: BP 141/91
[2020-03-08] MEDS: ENOXAPARIN SODIUM 30 MG/0.3 ML DISP.SYRIN SQ SCH (21:50)
[2020-03-09] VITALS: BP 116/71
[2020-03-09 04:00] VITALS: BP 136/76
--- NOTE | 2020-03-09 06:19 | NUR ---
CONTENT DEVELOPER NOTES AWAKE & RESPONSIVE. NOT IN ANY DISTRESS. NO SOB NOTED. DENIES ANY PAIN OR DISCOMFORT AT THIS TIME. ON TELE SR @ 94 WITH IV-HL PATENT & INTACT. AM CARE DONE. MONITORED ACCORDINGLY. CALL LIGHT WITHIN REACH. BED IN LOWEST POSITION. SR UP X 3 WITH BED ALARM ON FOR SAFETY. Addendum: 03/09/20 at 0632 by KARL GUZMAN RN WILL ENDORSE TO NEXT SHIFT.
[2020-03-09 07:12] LABS: ALBUMIN 2.8 g/dL (3.4-5.0); BASOPHILS # (AUTO) 0.1 /CMM (0.0-0.2); BASOPHILS % (AUTO) 0.9 % (0.0-2.0); BILIRUBIN,DIRECT 0.2 mg/dL (0.0-0.2); BILIRUBIN,TOTAL 0.7 mg/dL (0.2-1.0); CALCIUM, SERUM 8.9 mg/dL (8.5-10.1); CREATININE 0.9 mg/dL (0.6-1.3); EOSINOPHILS % (AUTO) 1.8 % (0.0-6.0); HEMATOCRIT 44 % (33-45); HEMOGLOBIN 14.5 g/dL (11.5-14.8); LYMPHOCYTES # (AUTO) 1.5 /CMM (0.8-4.8); LYMPHOCYTES % (AUTO) 19.1 % (20.0-44.0); MEAN CORPUSCULAR HGB CONC 33 g/dl (31.0-36.0); MEAN CORPUSCULAR VOLUME 92 fL (82-100); MONOCYTES # (AUTO) 0.4 /CMM (0.1-1.30); MONOCYTES % (AUTO) 5.1 % (2.0-12.0); NEUTROPHILS # (AUTO) 5.9 /CMM (1.8-8.9); NEUTROPHILS % (AUTO) 73.1 % (43.0-81.0); PLATELET COUNT (AUTO) 286 /CMM (150-450); POTASSIUM 3.4 mmol/L (3.5-5.1); RED BLOOD CELL COUNT(AUTO) 4.78 MIL/uL (4.0-5.2); TOTAL PROTEIN, SERUM 6.4 g/dL (6.4-8.2); WHITE BLOOD COUNT (AUTO) 8.1 K/uL (4.3-11.0)
--- NOTE | 2020-03-09 07:15 | NUR ---
STRATEGIC COMMUNICATIONS MANAGER OPENING NOTE Received patient awake in bed no signs of distress. On NC 2l tolerating well. Patient is AO x1 oriented to self and tries to get out of bed. Soft Restraints in place on both wrist. Tele reading 90s no co chest pain. Has LAC peripheral line flushed well. Safety measures reinforced. Call light within reach. Siderails up x4. Bed locked and on lowest position. Will cont to monitor.
[2020-03-09 08:00] VITALS: BP 140/85
[2020-03-09] MEDS: MUPIROCIN OINT 2% 22 GM TUBE SCH ×2 (08:42→20:58)
[2020-03-09] MEDS: ENSURE ENLIVE 237 ML LIQUID (VANILLA) PO SCH ×3 (08:43→16:52)
--- NOTE | 2020-03-09 08:52 | NUR ---
RESISTANCE BRAZER NOTE Informed Dr. Mott of potassium level 3.4. ordered K Dur 20meq PO. Noted and carried out.
[2020-03-09] MEDS ORDERED: POTASSIUM CHLORIDE 20 MEQ TAB.PRT.SR PO ONE (09:00)
[2020-03-09 12:00] VITALS: BP 130/78
[2020-03-09 16:00] VITALS: BP 135/76
[2020-03-09] MEDS: INVESTIGATIONAL MED MISC 1 EA in IV NS 0.9% 250 ML IV SCH (16:52)
--- NOTE | 2020-03-09 18:49 | NUR ---
WOOL PRESSER CLOSING NOTE Patient in bed asleep appears calm and relaxed. On NC 3L tolerating well no signs of distress. No co pain or discomfort. All due meds given. Vital signs within normal limits. Cont monitoring and hospitalization. IV Remdesivir given tolerated well. Safety measures reinforced. Call light within reach. Bed locked and on lowest position. Siderails up x2. Will endorse to animal surgeon nurse for marnie..
--- NOTE | 2020-03-09 19:19 | NUR ---
TANKER SERVICEMAN NOTE Covid 19 swab done and delivered specimen to labs
--- NOTE | 2020-03-09 19:30 | NUR ---
MACHINE SETTER AUTOMATIC OPENING NOTE, Received patient awake at this time, Patient is AO x1 breathing even and unlabored, no sob/acute distress noted at this time, on o2 4lpm via nc, tolerated well, sinus tachy o tele monitor with hr low 100s at this time, on bilateral Soft Restraints , no circulation compromised, no abnormalities noted at site, piv site on LAC patent and intact, all Safety measures in placed, Call light within reach. bed s/r up x3, Bed locked and on lowest position, Will cont to monitor closely.
[2020-03-09 20:00] VITALS: BP 144/79
[2020-03-09] MEDS: ENOXAPARIN SODIUM 30 MG/0.3 ML DISP.SYRIN SQ SCH (20:57)
[2020-03-10] VITALS (7 sets, daily range): BP systolic 121–142; BP diastolic 56–83
--- NOTE | 2020-03-10 06:30 | NUR ---
BAND SAW MARKER CLOSING NOTE, patient awake at this time, Patient is AO x1 breathing even and unlabored, no sob/acute distress noted at this time, on o2 4lpm via nc, no significant change in condition throughout the night, on bilateral Soft Restraints, no circulation compromised, no abnormalities noted at site, all Safety measures in placed, Call light within reach. bed s/r up x3, Bed locked and on lowest position, call light w/i reach, wll endorse continuity of care to oncoming nurse.
[2020-03-10 06:36] LABS: ALBUMIN 2.7 g/dL (3.4-5.0); BILIRUBIN,DIRECT 0.1 mg/dL (0.0-0.2); BILIRUBIN,TOTAL 0.7 mg/dL (0.2-1.0)
--- NOTE | 2020-03-10 08:00 | NUR ---
returned telephone equipment appraiser note patient on bed awake with some confusion, on 4l nv no sob noted ,sat 98% at this time ,on tele monitor sr hr 81, with soft bilateral restrain as ordered to prevent removing all lanes, , lt ac hl intact and flushed well, all needs attended, bed in lowest and locked position , will cont to monitor closely
[2020-03-10] MEDS: ENSURE ENLIVE 237 ML LIQUID (VANILLA) PO SCH ×4 (08:03→18:31)
[2020-03-10] MEDS: MUPIROCIN OINT 2% 22 GM TUBE SCH ×2 (08:03→20:33)
[2020-03-10 11:40] LABS: BASOPHILS # (AUTO) 0.1 /CMM (0.0-0.2); BASOPHILS % (AUTO) 1.5 % (0.0-2.0); EOSINOPHILS % (AUTO) 3.2 % (0.0-6.0); HEMATOCRIT 43 % (33-45); HEMOGLOBIN 13.8 g/dL (11.5-14.8); LYMPHOCYTES # (AUTO) 1.3 /CMM (0.8-4.8); LYMPHOCYTES % (AUTO) 15.9 % (20.0-44.0); MEAN CORPUSCULAR HGB CONC 32 g/dl (31.0-36.0); MEAN CORPUSCULAR VOLUME 93 fL (82-100); MONOCYTES # (AUTO) 0.5 /CMM (0.1-1.30); MONOCYTES % (AUTO) 6.6 % (2.0-12.0); NEUTROPHILS # (AUTO) 5.8 /CMM (1.8-8.9); NEUTROPHILS % (AUTO) 72.8 % (43.0-81.0); PLATELET COUNT (AUTO) 244 /CMM (150-450); WHITE BLOOD COUNT (AUTO) 7.9 K/uL (4.3-11.0)
[2020-03-10 11:47] LABS: CALCIUM, SERUM 8.9 mg/dL (8.5-10.1); CREATININE 0.8 mg/dL (0.6-1.3); POTASSIUM 3.7 mmol/L (3.5-5.1)
--- NOTE | 2020-03-10 12:00 | NUR ---
telegraphic typewriter installer note having lunch not in distres
--- NOTE | 2020-03-10 14:00 | NUR ---
telephone lineworker note report given to joni stoll
[2020-03-10] MEDS ORDERED: POTASSIUM CHLORIDE 20 MEQ TAB.PRT.SR PO SCH (14:30)
--- NOTE | 2020-03-10 17:00 | NUR ---
SLAB GRINDER POTASSIUM - PATIENT REFUSED. FOLLOW UP WITH PCP FOR REPLACEMENT
--- NOTE | 2020-03-10 18:33 | NUR ---
CUSTOMER ENGINEER WILL ENDORSE TO PM SHIFT. PATIENT NO CHANGE IN CONDITION AT THIS TIME. SAUTRATION @ > 95 @ THIS TIME . PATIENT REMAINS STABLE. PATIENT STATE SHE FEELS WEAK AND DOESNT REALLY TO EAT MUCH. PATIENT FINISH BOTTLE OF MILK AND ENSURE. BED LOCKED LOWEST POSITION CALL LIGHT WITH IN REACH ALL SAFETY MEASURE IMPLEMENTED PER HOSPITAL POLICY
--- NOTE | 2020-03-10 19:46 | NUR ---
STAMP MAKER OPENING NOTES PATIENT RECEIVED RESTING IN BED; A/OX1-2 EMIRATI SPEAKER; BREATHING EVEN AND UNLABORED; PATIENT TOLERATING 4L NC WELL; NO SOB NOTED; TELE MONITOR READS NSR - SINUS TACHY 96 BPM; L AC #20 TKO INTACT AND PATENT; FLUSHING WELL; NO S/S OF REDNESS OR INFILTRATION NOTED; BILATERAL SOFT WRIST RESTRAINTS APPLIED; NO EVIDENCE OF SKIN BREAKDOWN, SKIN INTACT; SAFETY PRECAUTIONS IMPLEMENTED; BED LOCKED IN LOW POSITION; SIDE RAILS X2; CALL LIGHT WITHIN REACH; WILL CONT PLAN OF CARE AND CONT TO MONITOR
[2020-03-10] MEDS: ENOXAPARIN SODIUM 30 MG/0.3 ML DISP.SYRIN SQ SCH (20:37)
[2020-03-11] VITALS: BP 143/83
[2020-03-11 04:00] VITALS: BP_SYST 123; BP_SYST 143; BP_DIAS 70; BP_DIAS 83
[2020-03-11 06:09] LABS: BASOPHILS # (AUTO) 0.1 /CMM (0.0-0.2); BASOPHILS % (AUTO) 0.7 % (0.0-2.0); EOSINOPHILS % (AUTO) 3.7 % (0.0-6.0); HEMATOCRIT 41 % (33-45); HEMOGLOBIN 13.1 g/dL (11.5-14.8); LYMPHOCYTES # (AUTO) 1.5 /CMM (0.8-4.8); LYMPHOCYTES % (AUTO) 16.6 % (20.0-44.0); MEAN CORPUSCULAR HGB CONC 32 g/dl (31.0-36.0); MEAN CORPUSCULAR VOLUME 93 fL (82-100); MONOCYTES # (AUTO) 0.5 /CMM (0.1-1.30); MONOCYTES % (AUTO) 5.8 % (2.0-12.0); NEUTROPHILS # (AUTO) 6.8 /CMM (1.8-8.9); NEUTROPHILS % (AUTO) 73.2 % (43.0-81.0); PLATELET COUNT (AUTO) 224 /CMM (150-450); RED BLOOD CELL COUNT(AUTO) 4.37 MIL/uL (4.0-5.2); WHITE BLOOD COUNT (AUTO) 9.3 K/uL (4.3-11.0)
[2020-03-11 06:39] LABS: ALBUMIN 2.5 g/dL (3.4-5.0); BILIRUBIN,TOTAL 0.5 mg/dL (0.2-1.0); CALCIUM, SERUM 9.2 mg/dL (8.5-10.1); CREATININE 0.7 mg/dL (0.6-1.3); MAGNESIUM 2.3 mg/dL (1.8-2.4); PHOSPHORUS 3.7 mg/dL (2.5-4.9); POTASSIUM 4.1 mmol/L (3.5-5.1); TOTAL PROTEIN, SERUM 5.7 g/dL (6.4-8.2)
--- NOTE | 2020-03-11 06:46 | NUR ---
RECORD SYSTEMS ANALYST CLOSING NOTES PATIENT RESTING IN BED COMFORTABLY; A/OX1-2 SCOTTISH SPEAKER; BREATHING EVEN AND UNLABORED; PATIENT TOLERATING 4L NC WELL; NO SOB NOTED; TELE MONITOR READS SINUS RHYTHM 96 BPM; L AC #20 INTACT AND PATENT; FLUSHING WELL; NO S/S OF REDNESS OR INFILTRATION NOTED; BILATERAL SOFT WRIST RESTRAINTS APPLIED; NO EVIDENCE OF SKIN BREAKDOWN; ALL NEEDS RENDERED; ISOLATION PRECAUTIONS MAINTAINED; SAFETY PRECAUTIONS IMPLEMENTED; BED LOCKED IN LOW POSITION; SIDE RAILS X2; WILL ENDORSE PHILOMENA TO ONCOMING SHIFT
--- NOTE | 2020-03-11 07:00 | NUR ---
RN TELE1 OPENING NOTES PATIENT A/O 1-2 PATIETN SPEASKING SPEAKING FOLLOWS SIMPLE COMMANDS. PATINT ON TELE MONITOR SR 90'S PATIENT ON N/C 4L SATURATING @ 95 PERCENT, PATIENT SKIN IS INTACT , PATIENT HAS BILATER SOFT WRIST RESTAINT, NO SIGNS OF REDNESS , SKIN TARES OR BREAKDOWN OF SKIN, PATIENT REGULAR DIET, BUT REQUIRED HELP FEEDING. PATIENT HAS L AC 20 TKO RUNNING BED LOCKED LOWEST POSITION CALL LIGHT WITHIN REACH ALL SAFETY MEASURE IMPLEMENTED PREHOSPITAL POLICY. 2X RAILS UP, PATIENT TURN AND REPOSITION Q2H .
[2020-03-11 08:00] VITALS: BP_SYST 112; BP_SYST 120; BP_DIAS 59; BP_DIAS 63
[2020-03-11 09:04] LABS: ABG BASE EXCESS 7.8 mmol/L; ABG OXYGEN SATURATION 96.9 % (92.0-98.5); ABG PCO2 46.6 mmHg (35.0-45.0); ABG PH 7.464 (7.350-7.450); ABG PO2 86.5 mmHg (75.0-100.0); AaDO2 116.1 mmHg; COHb 1.5 % (0.5-1.5); O2Hb 95.4 % (94.0-97.0); SITE, ABG Right Radial; VENT MODE, BG Nasal Cannula
[2020-03-11] MEDS: ENSURE ENLIVE 237 ML LIQUID (VANILLA) PO SCH ×3 (09:10→17:26)
[2020-03-11] MEDS: MUPIROCIN OINT 2% 22 GM TUBE SCH ×2 (09:11→20:37)
[2020-03-11 12:00] VITALS: BP 115/69
[2020-03-11 16:00] VITALS: BP 128/70
--- NOTE | 2020-03-11 18:28 | NUR ---
STEEL BUFFER NOTES PATIENT ABG COMPETED TODAY. PATIENT LOWERED O2 TO 2LMP PATIENT REMAINS STABLE AT THIS TIME VITALS STABLE, NO PAIN , NOACUTE RESPIRATORY DISTRESS AT THIS TIME. PATIENT TURN Q2H. PATIENT DRANK MOST OF PATIENT ENSURE TID. PATIENT MORE COOPERATIVE AND RESPOSIVE TO CARE. PATIENT CLEANED AND CHANGE LEIN BED LOCKED LOWEST POSITION CALL LIGHT WITH IN REACH 2 X RAILS UP ALL SAFETY MEASURE IMPLEMENTED PER HOSPITAL POLICY. TALKED TO FAMILY ABOUT UPDATES OF GRANDMOTHER. FAMILY IS AWARE OF PATIENT SITUATION
--- NOTE | 2020-03-11 19:30 | NUR ---
DIRECTOR DAY CARE CENTER OPENING NOTES RECEIVED PATIENT FROM MORNING SHIFT, ALERT AND ORIENTED X 1-2. GREEK VERBALLY RESPONSIVE. BREATHING REGULAR AND UNLABORED ON OXYGEN AT 2L/MIN VIA NASAL CANNULA. LEFT AC G20 IV LINE INTACT AND PATENT, FLUSHING WELL WITH NO BLEEDING OR S/S OF INFILTRATION NOTED. ON CARDIAC MONITORING WITH NSR AT 95bpm. NO S/S OF PAIN/DISCOMFORT NOTED AT THIS TIME. CALL LIGHT IN REACH. WILL CONTINUE TO MONITOR.
--- NOTE | 2020-03-11 19:35 | NUR ---
ADDENDUM: BOTH SOFT WRIST RESTRAINTS ON, SKIN ASSESSMENT DONE.
[2020-03-11 20:00] VITALS: BP 131/78
[2020-03-11] MEDS: ENOXAPARIN SODIUM 30 MG/0.3 ML DISP.SYRIN SQ SCH (20:31)
--- NOTE | 2020-03-11 21:00 | NUR ---
RATINGS ANALYST NOTES LEFT AC IV LINE PULLED OUT, NEW IV LINE REINSERTED ON RIGHT HAND G22 WITH GOOD BLOOD BACKFLOW FLUSHING WELL.
[2020-03-12] VITALS: BP 129/71
[2020-03-12 04:00] VITALS: BP 128/70
--- NOTE | 2020-03-12 06:30 | NUR ---
PARACHUTE PACKER CLOSING NOTES PATIENT IN BED ALERT AND ORIENTED X 1-2. AFEBRILE WITH NO S/S OF DISTRESS OBSERVED. ON OXYGEN AT 2L/MIN VIA NASAL CANNULA; LATEST SPO2 94%. RIGHT HAND G22 IV LINE PATENT AND FLUSHING WELL. MAINTAINED ON CARDIAC MONITORING WITH NSR AT 96bpm. NO S/S OF PAIN/DISCOMFORT NOTED THE WHOLE SHIFT. MAINTAINED ON BILATERAL SOFT WRIST RESTRAINTS. CIRCULATION AND SKIN ASSESSMENT DONE. CALL LIGHT IN REACH. WILL ENDORSE TO MORNING SHIFT FOR PHILOMENA.
[2020-03-12 06:42] LABS: BASOPHILS # (AUTO) 0.1 /CMM (0.0-0.2); BASOPHILS % (AUTO) 0.8 % (0.0-2.0); EOSINOPHILS % (AUTO) 4.2 % (0.0-6.0); HEMATOCRIT 41 % (33-45); HEMOGLOBIN 13.5 g/dL (11.5-14.8); LYMPHOCYTES # (AUTO) 1.7 /CMM (0.8-4.8); LYMPHOCYTES % (AUTO) 19.5 % (20.0-44.0); MEAN CORPUSCULAR HGB CONC 33 g/dl (31.0-36.0); MEAN CORPUSCULAR VOLUME 94 fL (82-100); MONOCYTES # (AUTO) 0.5 /CMM (0.1-1.30); NEUTROPHILS # (AUTO) 5.9 /CMM (1.8-8.9); NEUTROPHILS % (AUTO) 69.5 % (43.0-81.0); PLATELET COUNT (AUTO) 209 /CMM (150-450); RED BLOOD CELL COUNT(AUTO) 4.43 MIL/uL (4.0-5.2); WHITE BLOOD COUNT (AUTO) 8.5 K/uL (4.3-11.0)
[2020-03-12 06:43] LABS: CALCIUM, SERUM 9.3 mg/dL (8.5-10.1); CREATININE 0.7 mg/dL (0.6-1.3); POTASSIUM 3.9 mmol/L (3.5-5.1)
[2020-03-12 08:00] VITALS: BP 120/72
[2020-03-12] MEDS: MUPIROCIN OINT 2% 22 GM TUBE SCH ×2 (09:13→21:04)
[2020-03-12] MEDS: ENSURE ENLIVE 237 ML LIQUID (VANILLA) PO SCH ×3 (09:14→17:42)
[2020-03-12 12:00] VITALS: BP 125/62
[2020-03-12 14:19] LABS: ABG BASE EXCESS 7.3 mmol/L; ABG OXYGEN SATURATION 87.9 % (92.0-98.5); ABG PCO2 44.6 mmHg (35.0-45.0); ABG PH 7.472 (7.350-7.450); ABG PO2 51.6 mmHg (75.0-100.0); AaDO2 44.7 mmHg; COHb 0.8 % (0.5-1.5); MetHb 0.3 % (0.0-1.5); O2Hb 86.9 % (94.0-97.0); SITE, ABG Left Radial; VENT MODE, BG Room Air
--- NOTE | 2020-03-12 15:53 | NUR ---
COVID -19 swab done and sent to LAB
[2020-03-12 16:00] VITALS: BP_SYST 120; BP_SYST 140; BP_DIAS 72; BP_DIAS 74
--- NOTE | 2020-03-12 19:02 | NUR ---
PATIENT RESTING IN BED; A/OX1-2 MALAY SPEAKER, CONFUSED ; BREATHING EVEN AND UNLABORED ;ON 2L NC SATURATING 94-95%; NO SOB NOTED; TELE MONITOR READS SINUS RHYTHM 80S-90S BPM; L AC #20 INTACT AND PATENT; FLUSHING WELL; NO S/S OF REDNESS OR INFILTRATION NOTED; BILATERAL SOFT WRIST RESTRAINTS APPLIED; NO EVIDENCE OF SKIN BREAKDOWN; ALL NEEDS ATTENDED; ISOLATION PRECAUTIONS MAINTAINED; SAFETY PRECAUTIONS IMPLEMENTED; BED LOCKED IN LOW POSITION; SIDE RAILS X2; WILL ENDORSE TO ONCOMING SHIFT FOR PHILOMENA
--- NOTE | 2020-03-12 19:50 | NUR ---
RN OPENING NOTE PATIENT AWAKE IN BED, A/OX1-2 KOREAN SPEAKING, ON O2 AT 2L/MIN VIA TOLERATING WELL. PT IN NO DISTRESS OR SOB. ON TELE MONITOR CURRENTLY SR. IV SITE TO RIGHT HAND PATENT, INTACT AND FLUSHING WELL. BILATERAL SOFT WRIST RESTRAINTS CURRENTLY ON.; NO EVIDENCE OF SKIN BREAKDOWN OR REDNESS; ISOLATION PRECAUTIONS MAINTAINED; SAFETY MEASURES IN PLACE, BED LOCKED AND IN LOW POSITION; SIDE RAILS X2, WILL CONTINUE TO MONITOR PT.
[2020-03-12 20:00] VITALS: BP 121/77
[2020-03-13] VITALS (7 sets, daily range): BP systolic 111–129; BP diastolic 61–78
--- NOTE | 2020-03-13 06:45 | NUR ---
RN CLOSING NOTE PATIENT AWAKE IN BED, ON O2 AT 2L/MIN VIA TOLERATED WELL DURING SHIFT. O2 SAT 95-97%. PT IN NO DISTRESS OR SOB. ON TELE MONITOR CURRENTLY SR. IV SITE TO RIGHT HAND PATENT, INTACT AND FLUSHING WELL. BILATERAL SOFT WRIST RESTRAINTS CURRENTLY ON.; NO EVIDENCE OF SKIN BREAKDOWN OR REDNESS; ISOLATION PRECAUTIONS MAINTAINED; SAFETY MEASURES IN PLACE, BED LOCKED AND IN LOW POSITION; SIDE RAILS UP X2. ENDORSED TO AM RN FOR PHILOMENA.
--- NOTE | 2020-03-13 07:41 | NUR ---
REPORT CLERK OPENING NOTES RECEIVED PATIENT IN BED, ASLEEP. PATIENT IS ON O2 THERAPY AT 2 LPM; BREATHING IS EVEN AND UNLABORED. NO SOB PRESENT AT THIS TIME. EXTERNAL LIFE SCIENCES TEACHER WITH A CURRENT READING OF NORMAL SINUS AT 79. R HAND #22 PRESENT AND INTACT. ALL SAFETY PRECAUTIONS IN PLACE; BED IN LOW POSITION AND LOCKED, RAILS UP X2, CALL LIGHT WITHIN REACH. WILL CONTINUE TO MONITOR PATIENT.
[2020-03-13] MEDS: MUPIROCIN OINT 2% 22 GM TUBE SCH ×2 (08:53→21:32)
[2020-03-13] MEDS: ENSURE ENLIVE 237 ML LIQUID (VANILLA) PO SCH ×3 (08:54→16:51)
[2020-03-13 09:28] LABS: BASOPHILS # (AUTO) 0.1 /CMM (0.0-0.2); BASOPHILS % (AUTO) 1.1 % (0.0-2.0); EOSINOPHILS % (AUTO) 4.4 % (0.0-6.0); HEMATOCRIT 40 % (33-45); LYMPHOCYTES # (AUTO) 1.4 /CMM (0.8-4.8); LYMPHOCYTES % (AUTO) 19.1 % (20.0-44.0); MEAN CORPUSCULAR HGB CONC 32 g/dl (31.0-36.0); MEAN CORPUSCULAR VOLUME 94 fL (82-100); MONOCYTES # (AUTO) 0.4 /CMM (0.1-1.30); MONOCYTES % (AUTO) 5.8 % (2.0-12.0); NEUTROPHILS # (AUTO) 4.9 /CMM (1.8-8.9); NEUTROPHILS % (AUTO) 69.6 % (43.0-81.0); PLATELET COUNT (AUTO) 196 /CMM (150-450); RED BLOOD CELL COUNT(AUTO) 4.29 MIL/uL (4.0-5.2); WHITE BLOOD COUNT (AUTO) 7.1 K/uL (4.3-11.0)
[2020-03-13 09:34] LABS: CREATININE 0.8 mg/dL (0.6-1.3); POTASSIUM 3.8 mmol/L (3.5-5.1)
--- NOTE | 2020-03-13 13:30 | NUR ---
NEUROLOGICAL SURGEON NOTES TRIED TO REMOVE O2 AND SEE HOW WELL PATIENT TOLERATES ROOM AIR. IN FEW MINUTES O2 DROPPED TO 88-89 %. NASAL CANULA PUT BACK ON. PATIENT SATURATING WELL AT THIS TIME.
--- NOTE | 2020-03-13 18:40 | NUR ---
NFL PLAYER CLOSING NOTES PATIENT REMAINS IN BED, ASLEEP. THROUGHOUT THE DAY A/O X2. PATIENT ON O2 THERAPY; BREATHING IS EVEN AND UNLABORED; EXTERNAL SYNTHETIC PLASTERER WITH A CURRENT READING OF NORMAL SR 88. NO SOB NOTED. R HAND IV ACCESS G#18 PRESENT AND INTACT; FLUSHING WELL. NO PAIN AT THIS TIME. ALL NEEDS ATTENDED TO THROUGHOUT THE DAY. ALL SAFETY PRECAUTIONS REMAIN IN PLACE; BED IN LOW POSITION AND LOCKED, RAILS UP X2, CALL LIGHT WITHIN REACH. WILL ENDORSE TO HOUSEKEEPING/LAUNDRY NURSE.
[2020-03-14] VITALS (7 sets, daily range): BP systolic 105–138; BP diastolic 61–88
--- NOTE | 2020-03-14 07:30 | NUR ---
RN OPENING NOTE RECEIVED PATIENT FROM PM NURSE, PATIENT IN STABLE CONDITION, ON 2L O2 VIA NC SATURATING WELL, O2 SAT 98%. PATIENT IS A/0 X2, CONFUSED. REORIENTED PATIENT. ON TELE MONITOR WITH SR. PATIENT IS ON RESTRAINTS DUE TO PULLING OF THE TUBES. SAFETY MEASURES ARE IN PLACE AND FREQUENT ASSESSMENT IS DONE. ALL PATIENT NEEDS MET, SAFETY MAINTAINED, CALL LIGHT WITHIN REACH, WILL CONTINUE TO MONITOR.
[2020-03-14] MEDS: MUPIROCIN OINT 2% 22 GM TUBE SCH ×2 (09:04→21:52)
[2020-03-14] MEDS: ENSURE ENLIVE 237 ML LIQUID (VANILLA) PO SCH ×3 (09:04→17:02)
--- NOTE | 2020-03-14 09:34 | NUR ---
per richard heart if family doesnot want to take patient home today need to send to [facility],lana mena aware and will work on it.
--- NOTE | 2020-03-14 09:57 | NUR ---
followup covid result still pending.
--- NOTE | 2020-03-14 11:00 | NUR ---
erich able to talk to patient via zoom agreed with home discharge pending oxygen delivery.
--- NOTE | 2020-03-14 12:02 | NUR ---
per cm rajesh oxygen will be delivered once covid result is in,per cm will notify md since discharge on hold pending results.nursing sup aware.
[2020-03-14 12:38] LABS: BASOPHILS # (AUTO) 0.1 /CMM (0.0-0.2); BASOPHILS % (AUTO) 0.7 % (0.0-2.0); EOSINOPHILS % (AUTO) 3.6 % (0.0-6.0); HEMATOCRIT 40 % (33-45); LYMPHOCYTES # (AUTO) 1.7 /CMM (0.8-4.8); LYMPHOCYTES % (AUTO) 21.4 % (20.0-44.0); MEAN CORPUSCULAR HGB CONC 33 g/dl (31.0-36.0); MEAN CORPUSCULAR VOLUME 94 fL (82-100); MONOCYTES # (AUTO) 0.6 /CMM (0.1-1.30); MONOCYTES % (AUTO) 7.1 % (2.0-12.0); NEUTROPHILS # (AUTO) 5.5 /CMM (1.8-8.9); NEUTROPHILS % (AUTO) 67.2 % (43.0-81.0); PLATELET COUNT (AUTO) 178 /CMM (150-450); RED BLOOD CELL COUNT(AUTO) 4.26 MIL/uL (4.0-5.2); WHITE BLOOD COUNT (AUTO) 8.1 K/uL (4.3-11.0)
--- NOTE | 2020-03-14 13:58 | NUR ---
spoke with lab again they will follow up result for covid.
--- NOTE | 2020-03-14 17:36 | NUR ---
COVID RESULT FF. UP STILL PENDING.
--- NOTE | 2020-03-14 18:03 | NUR ---
[facility] heart notified patient unable to discharge home today since covid result still pending thus oxygen company will not delivered home o2 per cm rajesh.nursing sup made aware.
--- NOTE | 2020-03-14 19:37 | NUR ---
RN NOTE NO ACUTE CHANGES IN PATIENT CONDITION DURING MY SHIFT. PATIENT IS PENDING DISCHARGE. PT PULLED OUT IV, PER MD ORDER OK TO NOT START A NEW IV. ALL PATIENT NEEDS MET, SCHEDULED MEDS GIVEN ON TIME, ENDORSED TO PM NURSE FOR CONTINUITY OF CARE.
[2020-03-14] MEDS ORDERED: MUPIROCIN OINT 2% 22 GM TUBE ONE (21:17)
[2020-03-15 00:49] VITALS: BP 133/79
[2020-03-15 00:50] VITALS: BP 133/79
--- NOTE | 2020-03-15 03:15 | NUR ---
Lab: Shyam Herrera reported COVID POSITIVE for patient.
[2020-03-15 04:44] VITALS: BP 142/72
[2020-03-15 05:57] VITALS: BP 142/72
[2020-03-15 08:00] VITALS: BP 138/81
--- NOTE | 2020-03-15 08:00 | NUR ---
DIRECTOR ERP OPENING NOTES RECEIVED PATIETN FROM WIRE PULLER NURSE IN BED, AWAKE, A/O X 2, 02 @ 2LPM VIA NASAL CANNULA, UNLABORED BREATHING, NO SIGNS OF RESPIRATORY DISTRESS, WITH RESTRAINTS ON BOTH WRISTS, NO IV ACCESS, SIDE RAILS UP.
[2020-03-15] MEDS: ENSURE ENLIVE 237 ML LIQUID (VANILLA) PO SCH ×2 (09:05→13:03)
[2020-03-15] MEDS: MUPIROCIN OINT 2% 22 GM TUBE SCH (09:05)
[2020-03-15 12:00] VITALS: BP 152/83
--- NOTE | 2020-03-15 13:45 | NUR ---
CYBER THREAT ANALYST CLOSING NOTES DISCHARGED AND BROUGHT PATIENT TO THE LOBBY VIA WHEELCHAIR, BREATHING AT ROOM AIR, UNLABORED BREATHING, NO SIGNS OF RESPIRATORY DISTRESS, THE DAUGHTER CROWN WHEEL ASSEMBLER THE PATIENT VIA PRIVATE CAR. DISCHARGED INSTRUCTIONS GIVEN.
== END 2020-03-15 13:23 | disposition home or self-care (01) | DRG 720 ==
LOC: ER 12:19 → TELE1 15:32 → TELE2 02-25 09:58 → TELE1 03-02 12:44
PROVIDERS: ADMIT Internal Medicine; ATTEND Nurse Practitioner Acute Care
PROC: 30233K1 Transfusion of Nonautologous Frozen Plasma into Peripheral Vein, Percutaneous Approach (ICD-10-PCS; principal; 2020-03-01)
DX: A41.89 Other specified sepsis (principal); U07.1 COVID-19; J96.01 Acute respiratory failure with hypoxia; E43 Unspecified severe protein-calorie malnutrition; G93.41 Metabolic encephalopathy; R13.10 Dysphagia, unspecified; J12.89 Other viral pneumonia; E87.2 Acidosis; E87.6 Hypokalemia; Z68.24 Body mass index [BMI] 24.0-24.9, adult; E88.09 Other disorders of plasma-protein metabolism, not elsewhere classified; I35.0 Nonrheumatic aortic (valve) stenosis; D72.829 Elevated white blood cell count, unspecified; R74.0 Nonspecific elevation of levels of transaminase and lactic acid dehydrogenase [LDH]; Z22.322 Carrier or suspected carrier of Methicillin resistant Staphylococcus aureus; R47.02 Dysphasia; E87.0 Hyperosmolality and hypernatremia; Z88.0 Allergy status to penicillin
CPT/HCPCS: 36415; 36600; 71045-TC; 80048-TC; 80053-TC; 80076-TC; 82248-TC; 82550-TC; 82728-TC; 82803-TC; 82962-TC; 83605-TC; 83615-TC; 83735-TC; 83880; 84100-TC; 84484-TC; 85025-TC; 85378-TC; 85396; 85610-TC; 85730-TC; 86140-TC; 86480; 86850-TC; 87040-TC; 87081-TC; 87086-TC; 94799-TC; 97116-TC; 97530-TC; G0378; J0456; J0696; J1200; J1650; J2060; J2920; J3262; J3370; J3490; J7030; J7050; J7060; P9017-BL; U0003-CS